=== PATIENT | female | born 1950 | race Caucasian/White ===

== ENCOUNTER 2016-09-03 08:55 | Outpatient (CLI) | payer OTHER ==
--- NOTE | 2016-09-03 15:50 | CT Report ---
CT OF THE ABDOMEN AND PELVIS WITHOUT CONTRAST: 09/03/2016 CLINICAL INDICATION: Pain. TECHNIQUE: Axial CT images of the abdomen and pelvis were obtained without oral or intravenous contra st. COMPARISON: 03/25/2016. FINDINGS: Limited evaluation of the lung bases demonstrates mild emphysema. ABDOMEN: Allowing for the lack of intravenous contrast enhancement, the liver, spleen, pancreas and a drenal glands are unremarkable. The kidneys demonstrate no evidence of nephrolithiasis or hydronephro sis. No bowel dilatation, free gas, or free fluid is present. No abdominal adenopathy is seen. PELVIS: The pelvic organs appear unremarkable. No pelvic adenopathy or free fluid is present. The osseous structures demonstrate degenerative changes. IMPRESSION: NO EVIDENCE OF NEPHROLITHIASIS OR HYDRONEPHROSIS. NO EVIDENT ETIOLOGY FOR PATIENT'S PAIN . In accordance with CT protocol optimization, one or more of the following dose reduction techniques w ere utilized for this exam: automated exposure control, adjustment of mA and/or KV based on patient size, or use of iterative reconstructive technique. JOB #: [id number] EXT JOB #:[id number]
== END 2016-09-03 08:56 | disposition home or self-care (01) ==
LOC: DI 08:55
PROVIDERS: ATTEND Surgery
DX: R10.9 Unspecified abdominal pain (principal)
CPT/HCPCS: 74176

== ENCOUNTER 2016-11-08 07:55 | Outpatient (CLI) | payer OTHER ==
--- NOTE | 2016-11-08 22:55 | Ultrasound Report ---
EXAM: RETROPERITONEAL ULTRASOUND EXAM DATE: 11/08/2016 08:08 AM. CLINICAL HISTORY: ABDOMINAL PAIN, CHRONIC. COMPARISON: 09/03/2016. TECHNIQUE: Real-time scanning was performed with static images obtained. FINDINGS: The proximal aorta measures 1.8 cm in AP diameter. The mid aorta measures 1.7 x 1.7 cm in d iameter. Distal aorta measures 1.3 x 1.6 cm. No significant atheromatous plaque is seen. The right common iliac measures 0.9 x 0.9 cm. The left common iliac measures 0.9 x 0.8 cm. IMPRESSION: No evidence of abdominal aortic or iliac aneurysm. [facility] Referring Provider Line: [phone] SITE ID: [id number]
== END 2016-11-08 07:56 | disposition home or self-care (01) ==
LOC: DI 07:55
PROVIDERS: ATTEND Physician Assistant Medical
DX: R10.9 Unspecified abdominal pain (principal)
CPT/HCPCS: 76770

== ENCOUNTER 2016-11-30 09:49 | Emergency (ER) | payer OTHER ==
--- NOTE | 2016-11-30 10:22 | ED Physician Documentation ---
History of Present Illness - Stated complaint Stated Complaint: BLOOD IN STOOL - Chief complaint Chief Complaint: Abd Pain - Additonal information Additional information: hx from pt 66 female pshc TAHBS kendra ventral hernia has been being worked up for abd pain over last few mibths - has had CT scan ( no acute process) and sono (no acute prcoess) and is now seeing GI to be scheduled for scopes was constipated, took miralax for three days, now having BM but with BRBPR on and in stool though stool itself is not black or maroon no blood thinners last colonoscopy was normal per pt, possible fhx colon cancer Review of Systems Constitutional: denies: Fever, Chills Cardiac: denies: Chest pain / pressure Respiratory: denies: Dyspnea GI: reports: Abdominal Pain (X months), Bloody / black stool (X today) Neurologic: denies: Generalized weakness, Focal weakness Endocrine: denies: Easy bruising / bleeding Immunocompromised: denies: Immunocompromised PD PAST MEDICAL HISTORY - Past Medical History Cardiovascular: Other Respiratory: None Endocrine/Autoimmune: None GI: Other : Kidney stones HEENT: Chronic hearing loss Psych: Panic attacks Musculoskeletal: None Derm: None - Past Surgical History 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 Cardiovascular: Pacemaker - Present Medications Home Medications: Ambulatory Orders Medication Instructions Recorded Confirmed Atenolol 50 mg PO DAILY 10/25/15 11/09/15 Citalopram [CeleXA] 20 mg PO BID 10/25/15 11/09/15 Pantoprazole [Protonix] 40 mg PO DAILY 10/25/15 11/09/15 Simvastatin 40 mg PO DAILY 10/25/15 11/09/15 Sumatriptan [Imitrex] 25 mg PO 10/25/15 Topiramate [Topamax] 15 mg PO BID 10/25/15 11/09/15 - Allergies Allergies/Adverse Reactions: Allergies Allergy/AdvReac Type Severity Reaction Status Date / Time No Known Drug Allergies Allergy Verified 10/25/15 13:32 PD ED PE NORMAL - Vitals Vital signs reviewed: Yes - Neck Neck: Supple, no meningeal sign - Cardiac Cardiac: RRR - Respiratory Respiratory: No respiratory distress - Abdomen Abdomen: Soft, Other (mod TTP across lower abd s rebound or gaurding) - Derm Derm: Normal color - Extremities Extremities: No deformity - Neuro Neuro: Alert and oriented X 3 - Psych Psych: Normal mood Results - Vitals Vitals: Vital Signs - 24 hr 11/30/16 09:53 Temperature 36.9 C Heart Rate 58 L Respiratory 18 Rate Blood Pressure 142/65 H O2 Saturation 100 Oxygen O2 Source Room air - Labs Labs: Laboratory Tests 11/30/16 11/30/16 11/30/16 10:18 10:18 10:18 WBC 4.8 RBC 4.54 Hgb 14.2 Hct 41.2 MCV 90.8 MCH 31.3 H MCHC 34.5 RDW 13.2 Plt Count 163 MPV 6.9 L Neut # 2.4 Lymph # 1.8 [place] # 0.3 Eos # 0.3 Baso # 0.0 Absolute Nucleated RBC 0.00 Nucleated RBCs 0.0 PT 12.0 INR 1.1 APTT 25.2 Sodium 140 Potassium 4.0 Chloride 108 Carbon Dioxide 23 Anion Gap 9.0 BUN 14 Creatinine 1.0 Estimated GFR (MDRD) 56 L Glucose 138 H Calcium 9.4 Total Bilirubin 0.6 AST 41 ALT 53 Alkaline Phosphatase 55 Total Protein 7.8 Albumin 4.3 Globulin 3.5 Albumin/Globulin Ratio 1.2 Lipase 34 PD MEDICAL DECISION MAKING - ED course ED course: nl H/H hemodynamically stable already had Ct sono and scheduled for scopes will reassure and dc for today with bleeding precautions and close follow up Departure - Departure Disposition: 01 Home, Self Care Clinical Impression: GI bleed Qualifiers: GI bleed type/associated pathology: unspecified gastrointestinal hemorrhage type Qualified Code(s): K92.2 - Gastrointestinal hemorrhage, unspecified Condition: Good Instructions: ED Hematochezia Stable Follow-Up: Rosa Isela Nieves PA-C [Primary Care Provider] - Comments: There was bloody mucous on the rectal exam but no hemorrhoids or tumors or fissures were seen. Your blood count is fine - at this time you have not lost too much blood - but you should get a repeat blood count again tomorrow - your PMD can order this to be drawn at the lab and call you with the results. Please get the endoscopy and colonoscopies as planned And return to the ER if worse in any way (heavier bleeding, feeling weak or faint, chest pain or shortness of breath, worsening abdominal pain etc) Also please have your PMD recheck your blood pressure
[2016-11-30 10:24] LABS: BASOPHILS % (AUTO) 0.8 %; EOSINOPHILS # (AUTO) 0.3 10^3/uL (0.0-0.7); EOSINOPHILS % (AUTO) 5.9 %; HCT - HEMATOCRIT 41.2 % (37.0-47.0); HGB - HEMOGLOBIN 14.2 g/dL (12.0-16.0); LYMPHOCYTES # (AUTO) 1.8 10^3/uL (1.5-3.5); LYMPHOCYTES % (AUTO) 37.5 %; MEAN CORPUSCULAR HEMOGLOBIN 31.3 pg (27.0-31.0); MEAN CORPUSCULAR HGB CONC 34.5 g/dL (32.0-36.0); MEAN CORPUSCULAR VOLUME 90.8 fL (81.0-99.0); MEAN PLATELET VOLUME 6.9 fL (7.9-10.8); MONOCYTES # (AUTO) 0.3 10^3/uL (0.0-1.0); MONOCYTES % (AUTO) 6.3 %; NEUTROPHILS # (AUTO) 2.4 10^3/uL (1.5-6.6); NEUTROPHILS % (AUTO) 49.5 %; RED BLOOD COUNT 4.54 10^6/uL (4.20-5.40); RED CELL DISTRIBUTION WIDTH 13.2 % (12.0-15.0); UNCORRECTED WHITE BLOOD COUNT 4.8 x10^3/uL; WHITE BLOOD COUNT 4.8 x10^3/uL (4.8-10.8)
[2016-11-30] MEDS ORDERED: SODIUM CHLORIDE FLUSH 0.9% 10 ML SYRINGE IVP ONE (10:25)
[2016-11-30 10:31] LABS: INR 1.1 (0.8-1.2)
[2016-11-30 10:36] LABS: ALBUMIN/GLOBULIN RATIO 1.2 (1.0-2.2); BILIRUBIN,TOTAL 0.6 mg/dL (0.2-1.0); CALCIUM 9.4 mg/dL (8.5-10.3); TOTAL PROTEIN 7.8 g/dL (6.7-8.2)
[2016-11-30 10:38] LABS: PARTIAL THROMBOPLASTIN TIME 25.2 secs (24.9-33.3)
[2016-11-30 12:04] VITALS: BP 139/76
== END 2016-11-30 12:17 | disposition home or self-care (01) ==
LOC: ED 09:49
DX: K92.2 Gastrointestinal hemorrhage, unspecified (principal); Z95.0 Presence of cardiac pacemaker
CPT/HCPCS: 36415; 80053; 83690; 85025; 85610; 85730; 99283; 99284

== ENCOUNTER 2016-12-09 10:27 | Outpatient (CLI) | payer OTHER ==
--- NOTE | 2016-12-10 07:44 | XRAY Report ---
LUMBAR SPINE, FOUR VIEW STUDY: 12/09/2016 HISTORY: Back pain, radiculopathy. FINDINGS: There are five nonrib-bearing vertebrae. There are diminutive ribs affiliated with the lowest thoracic vertebral bearing body. Mild scoliosis is noted with the apex convex to the right centered at L1-2 and to the left centered at L3-4. Mild multilevel degenerative changes exist throughout the thoracic spine, maximal at L4-5 and L5-S1. There is no spondylolysis or spondylolisthesis. The SI joint spaces are preserved. The visualized sacral ala are intact. Scant atherosclerotic calcifications are incidental in the aorta. Surgical clips in the right upper quadrant likely correspond to a prior cholecystectomy. IMPRESSION: MULTILEVEL DEGENERATIVE DISK AND FACET CHANGES. CONSIDER MRI IF THERE ARE PROGRESSIVE RADICULAR SYMPTOMS. JOB #: [id number] EXT JOB #: [id number] MARTIN
== END 2016-12-09 10:28 | disposition home or self-care (01) ==
LOC: DI.S 10:27
PROVIDERS: ATTEND Physician Assistant Medical
DX: M51.36 Other intervertebral disc degeneration, lumbar region (principal); M47.896 Other spondylosis, lumbar region
CPT/HCPCS: 72110

== ENCOUNTER 2017-01-26 14:49 | Outpatient (CLI) | payer OTHER ==
--- NOTE | 2017-01-27 09:26 | CT Report ---
CT LUMBAR SPINE WITHOUT CONTRAST: 01/26/2017 CLINICAL INDICATION: Pain. TECHNIQUE: Axial CT images of the lumbar spine were obtained without contrast, following which sagit julien and coronal reconstructions were performed. COMPARISON: Plain films 12/09/2016. FINDINGS: The lumbar vertebral bodies demonstrate normal height and alignment. There is no evidence of fracture. The T12-L1 disk is unremarkable. At L1-2, there is mild broad-based disk bulge, without significant spinal or foraminal narrowing. At L2-3, there is moderate broad-based disk bulge, without significant spinal or foraminal narrowing. At L3-4, there is moderate broad-based disk bulge, with facet hypertrophy, producing bilateral forami nal narrowing, but no significant spinal stenosis. At L4-5, there is moderate broad-based disk bulge, with facet hypertrophy, producing bilateral forami nal narrowing, but no significant spinal stenosis. The L5-S1 disk demonstrates minimal disk osteophyte, without significant spinal or foraminal narrowin g. IMPRESSION: DEGENERATIVE CHANGES ABOVE. MULTILEVEL NEURAL FORAMINAL NARROWING, BUT NO SIGNIFICAN T SPINAL STENOSIS. In accordance with CT protocol optimization, one or more of the following dose reduction techniques w ere utilized for this exam: automated exposure control, adjustment of mA and/or KV based on patient size, or use of iterative reconstructive technique. JOB #: [id number] EXT JOB #:[id number]
== END 2017-01-26 14:50 | disposition home or self-care (01) ==
LOC: DI 14:49
PROVIDERS: ATTEND Orthopaedic Surgery
DX: M51.36 Other intervertebral disc degeneration, lumbar region (principal); M47.896 Other spondylosis, lumbar region
CPT/HCPCS: 72131

== ENCOUNTER 2017-06-07 11:10 | Emergency (ER) | payer OTHER ==
[2017-06-07 11:40] LABS: MUDS CUTOFF CONCENTRATIONS CUTOFF CONC BELOW:
[2017-06-07 11:54] LABS: AMPHETAMINE SCREEN,URINE NEGATIVE (NEGATIVE); BENZODIAZEPINES SCREEN, URINE POSITIVE (NEGATIVE); COCAINE SCREEN URINE NEGATIVE (NEGATIVE); METHADONE SCREEN, URINE NEGATIVE (NEGATIVE); METHAMPHETAMINES SCREEN, URINE NEGATIVE (NEGATIVE); OPIATE SCREEN, URINE NEGATIVE (NEGATIVE); OXYCODONE SCREEN, URINE NEGATIVE (NEGATIVE); PROPOXYPHENE SCREEN, URINE NEGATIVE (NEGATIVE); TRICYCLIC ANTIDEPRESSANT,URINE NEGATIVE (NEGATIVE)
[2017-06-07 11:55] LABS: BILIRUBIN,URINE NEGATIVE (NEGATIVE); GLUCOSE, URINE (UA) NEGATIVE (NEGATIVE); KETONES,URINE (UA) NEGATIVE (NEGATIVE); LEUKOCYTE ESTERASE, URINE SMALL (NEGATIVE); NITRITE,URINE NEGATIVE (NEGATIVE); OCCULT BLOOD,URINE NEGATIVE (NEGATIVE); PROTEIN,URINE NEGATIVE (NEGATIVE); UROBILINOGEN,URINE 0.2 (NORMAL) E.U./dL (NORMAL)
[2017-06-07 11:57] LABS: CLARITY,URINE CLEAR (CLEAR)
[2017-06-07 11:58] LABS: BACTERIA,URINE Few /HPF (None Seen); RBC,URINE 0-5 /HPF (0-5); SQUAMOUS EPITHELIAL CELL,UR FEW Squamous (<= Few)
[2017-06-07 11:58] LABS: ACETAMINOPHEN < 10 ug/mL (10-30); ALBUMIN 4.3 g/dL (3.2-5.5); ALBUMIN/GLOBULIN RATIO 1.3 (1.0-2.2); ALKALINE PHOSPHATASE 55 IU/L (42-121); ALT ALANINE AMINOTRANSFERASE 50 IU/L (10-60); AST ASPARTATE AMINOTRANSFERASE 36 IU/L (10-42); BILIRUBIN,TOTAL 0.5 mg/dL (0.2-1.0); BUN - BLOOD UREA NITROGEN 20 mg/dL (6-20); CALCIUM 9.7 mg/dL (8.5-10.3); CARBON DIOXIDE - CO2 26 mmol/L (21-32); CHLORIDE 102 mmol/L (101-111); CREATININE 1.2 mg/dL (0.4-1.0); GFR - MDRD 45 (>89); GLUCOSE 94 mg/dL (70-100); LIPASE 24 U/L (22-51); SALICYLATE < 6.0 mg/dL; SODIUM 140 mmol/L (135-145); TOTAL PROTEIN 7.6 g/dL (6.7-8.2)
[2017-06-07 12:04] LABS: BASOPHILS % (AUTO) 0.7 %; EOSINOPHILS # (AUTO) 0.2 10^3/uL (0.0-0.7); EOSINOPHILS % (AUTO) 4.6 %; HGB - HEMOGLOBIN 14.8 g/dL (12.0-16.0); LYMPHOCYTES # (AUTO) 1.7 10^3/uL (1.5-3.5); LYMPHOCYTES % (AUTO) 38.6 %; MEAN CORPUSCULAR HEMOGLOBIN 31.3 pg (27.0-31.0); MEAN CORPUSCULAR HGB CONC 34.4 g/dL (32.0-36.0); MEAN CORPUSCULAR VOLUME 91.1 fL (81.0-99.0); MEAN PLATELET VOLUME 7.4 fL (7.9-10.8); MONOCYTES # (AUTO) 0.4 10^3/uL (0.0-1.0); MONOCYTES % (AUTO) 8.4 %; NEUTROPHILS # (AUTO) 2.1 10^3/uL (1.5-6.6); NEUTROPHILS % (AUTO) 47.7 %; PLT - PLATELET COUNT 171 10^3/uL (130-450); RED BLOOD COUNT 4.73 10^6/uL (4.20-5.40); RED CELL DISTRIBUTION WIDTH 12.9 % (12.0-15.0); WHITE BLOOD COUNT 4.4 x10^3/uL (4.8-10.8)
--- NOTE | 2017-06-07 12:50 | ED Physician Documentation ---
PD HPI MHE - Stated complaint Stated Complaint: MHE - Chief complaint Chief Complaint: MHE - History obtained from History obtained from: Patient, Family - History of Present Illness Primary symptom: Suicidal ideation, Depression Timing - onset: How many weeks ago (several) Pain level max: 0 Pain level now: 0 Contributing factors: Family Similar symptoms before: Diagnosis (depression) Recently seen: Not recently seen - Additional information Additional information: Patient is a 66-year-old female who presents to the emergency department with depression today. She states that she does not see the point in living and feels like she should be suicidal. Posted on Facebook that she was going to kill herself. Brought in by her . Her doctor wanted her tested for bipolar, but she did not want to do that. She is not currently on anti- antidepressants. Denies any alcohol or drug use. Has never attempted suicide or been hospitalized before. She used to have a counselor, but quit seeing them because she did not get along with that person Review of Systems Ten Systems: 10 systems reviewed and negative Constitutional: denies: Fever, Chills Ears: denies: Ear pain Nose: denies: Rhinorrhea / runny nose, Congestion Throat: denies: Sore throat Cardiac: denies: Chest pain / pressure Respiratory: denies: Cough GI: denies: Abdominal Pain, Nausea, Vomiting, Diarrhea Skin: denies: Rash Musculoskeletal: denies: Neck pain, Back pain Neurologic: denies: Headache PD PAST MEDICAL HISTORY - Past Medical History Cardiovascular: Arrhythmia, Other Respiratory: None Endocrine/Autoimmune: None GI: GERD : Kidney stones, Other HEENT: Chronic hearing loss Psych: Anxiety Musculoskeletal: None Derm: None - Past Surgical History 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 Cardiovascular: Pacemaker HEENT: Tonsil/Adenoidectomy - Present Medications Home Medications: Ambulatory Orders Medication Instructions Recorded Confirmed Atenolol 50 mg PO DAILY 10/25/15 12/24/16 Citalopram [CeleXA] 20 mg PO BID 10/25/15 12/24/16 Pantoprazole [Protonix] 40 mg PO DAILY 10/25/15 12/24/16 SUMAtriptan [Imitrex] 25 mg PO DAILY 10/25/15 12/24/16 Simvastatin 40 mg PO DAILY 10/25/15 12/24/16 Topiramate [Topamax] 15 mg PO BID 10/25/15 12/24/16 - Allergies Allergies/Adverse Reactions: Allergies Allergy/AdvReac Type Severity Reaction Status Date / Time No Known Drug Allergies Allergy Verified 06/07/17 11:22 - Social History Does the pt smoke?: No Smoking Status: Never smoker Does the pt drink ETOH?: No Does the pt have substance abuse?: No - Immunizations Immunizations are current?: Yes - POLST Patient has POLST: No PD ED PE NORMAL - Vitals Vital signs reviewed: Yes - General General: Alert and oriented X 3, No acute distress, Well developed/nourished - HEENT HEENT: PERRL, EOMI, Moist mucous membranes - Neck Neck: Supple, no meningeal sign - Cardiac Cardiac: RRR, Strong equal pulses - Respiratory Respiratory: No respiratory distress, Clear bilaterally - Abdomen Abdomen: Soft, Non tender, Non distended - Back Back: No spinal TTP - Derm Derm: Warm and dry, No rash - Extremities Extremities: No edema, No calf tenderness / cord - Neuro Neuro: Alert and oriented X 3 - Psych Psych: Other (flat affect) Results - Vitals Vitals: Vital Signs - 24 hr 06/07/17 06/07/17 11:13 16:21 Temperature 36.5 C 36 C L Heart Rate 62 55 L Respiratory 20 14 Rate Blood Pressure 156/77 H 136/74 H O2 Saturation 95 99 Oxygen O2 Source Room air - Labs Labs: Laboratory Tests 06/07/17 06/07/17 06/07/17 11:30 11:30 11:35 WBC RBC Hgb Hct MCV MCH MCHC RDW Plt Count MPV Neut # Lymph # [place] # Eos # Baso # Absolute Nucleated RBC Nucleated RBC % Sodium 140 Potassium 4.0 Chloride 102 Carbon Dioxide 26 Anion Gap 12.0 BUN 20 Creatinine 1.2 H Estimated GFR (MDRD) 45 L Glucose 94 Calcium 9.7 Total Bilirubin 0.5 AST 36 ALT 50 Alkaline Phosphatase 55 Total Protein 7.6 Albumin 4.3 Globulin 3.3 Albumin/Globulin Ratio 1.3 Lipase 24 Urine Color YELLOW Urine Clarity CLEAR Urine pH 6.0 Ur Specific [place] 1.025 Urine Protein NEGATIVE Urine Glucose (UA) NEGATIVE Urine Ketones NEGATIVE Urine Occult Blood NEGATIVE Urine Nitrite NEGATIVE Urine Bilirubin NEGATIVE Urine Urobilinogen 0.2 (NORMAL) Ur Leukocyte Esterase SMALL H Urine RBC 0-5 Urine WBC 4-5 Ur Squamous Epith Cells FEW Squamous Urine Bacteria Few Ur Microscopic Review INDICATED Urine Culture Comments INDICATED Salicylates < 6.0 Urine Opiates Screen NEGATIVE Ur Oxycodone Screen NEGATIVE Urine Methadone Screen NEGATIVE Ur Propoxyphene Screen NEGATIVE Acetaminophen < 10 L Ur Barbiturates Screen NEGATIVE Ur Tricyclics Screen NEGATIVE Ur Phencyclidine Scrn NEGATIVE Ur Amphetamine Screen NEGATIVE U Methamphetamines Scrn NEGATIVE U Benzodiazepines Scrn POSITIVE H Urine Cocaine Screen NEGATIVE U Cannabinoids Screen NEGATIVE Ethyl Alcohol < 5.0 06/07/17 11:35 WBC 4.4 L RBC 4.73 Hgb 14.8 Hct 43.1 MCV 91.1 MCH 31.3 H MCHC 34.4 RDW 12.9 Plt Count 171 MPV 7.4 L Neut # 2.1 Lymph # 1.7 [place] # 0.4 Eos # 0.2 Baso # 0.0 Absolute Nucleated RBC 0.00 Nucleated RBC % 0.0 Sodium Potassium Chloride Carbon Dioxide Anion Gap BUN Creatinine Estimated GFR (MDRD) Glucose Calcium Total Bilirubin AST ALT Alkaline Phosphatase Total Protein Albumin Globulin Albumin/Globulin Ratio Lipase Urine Color Urine Clarity Urine pH Ur Specific [place] Urine Protein Urine Glucose (UA) Urine Ketones Urine Occult Blood Urine Nitrite Urine Bilirubin Urine Urobilinogen Ur Leukocyte Esterase Urine RBC Urine WBC Ur Squamous Epith Cells Urine Bacteria Ur Microscopic Review Urine Culture Comments Salicylates Urine Opiates Screen Ur Oxycodone Screen Urine Methadone Screen Ur Propoxyphene Screen Acetaminophen Ur Barbiturates Screen Ur Tricyclics Screen Ur Phencyclidine Scrn Ur Amphetamine Screen U Methamphetamines Scrn U Benzodiazepines Scrn Urine Cocaine Screen U Cannabinoids Screen Ethyl Alcohol PD MEDICAL DECISION MAKING - ED course Complexity details: reviewed results, re-evaluated patient, considered differential, d/w patient, d/w family, d/w strategy planning consultant ED course: Patient is a 66-year-old female who presents to the emergency department with vague suicidal ideation and ongoing depression. She is medically clear for psychiatric care. Social work was consulted and the patient is able to contract for safety and will follow up as an outpatient with a counselor. Patient and family are both comfortable with this plan. They will return sooner if she worsens. Resources given. Patient and family counseled regarding signs and symptoms for which I believe and urgent re-evaluation would be necessary. Patient with good understanding of and agreement to plan and is comfortable going home at this time This document was made in part using voice recognition software. While efforts are made to proofread this document, sound alike and grammatical errors may occur. Departure - Departure Disposition: 01 Home, Self Care Clinical Impression: Depression Qualifiers: Depression Type: unspecified Qualified Code(s): F32.9 - Major depressive disorder, single episode, unspecified Condition: Good Instructions: ED Depression Follow-Up: Rosa Isela Nieves PA-C [Primary Care Provider] - Within 3 Days Comments: Follow-up with a therapist and psychiatrist as instructed by social work today. You should also discuss this with Rosa Isela Nieves. Return if you worsen. Crisis Line and is available to talk to someone [email or web address] is also available to chat with someone online if you prefer. There are also many resources on this website and apps for your phone to help with your mental health Discharge Date/Time: 06/07/17 16:31
[2017-06-07 16:22] VITALS: BP 136/74
== END 2017-06-07 16:31 | disposition home or self-care (01) ==
LOC: ED 11:10
DX: F32.9 Major depressive disorder, single episode, unspecified (principal); R45.851 Suicidal ideations; I49.9 Cardiac arrhythmia, unspecified; K21.9 Gastro-esophageal reflux disease without esophagitis; Z87.442 Personal history of urinary calculi; Z95.0 Presence of cardiac pacemaker
CPT/HCPCS: 36415; 80053; 80306; 80307; 80320; 80329; 81001; 81003; 83690; 85025; 87077; 87086; 99283

== ENCOUNTER 2017-08-07 13:40 | Outpatient (CLI) | payer OTHER ==
[2017-08-07] MEDS ORDERED: IOPAMIDOL-300 50 ML VIAL ONE (14:16)
[2017-08-07 15:00] LABS: CREATININE 1.1 mg/dL (0.4-1.0)
[2017-08-07] MEDS ORDERED: IOPAMIDOL-300 100 ML VIAL ONE (15:26)
[2017-08-07] MEDS ORDERED: IOPAMIDOL-300 50 ML VIAL PO ONE (15:36)
[2017-08-07] MEDS ORDERED: IOPAMIDOL-300 100 ML VIAL IVP ONE (15:44)
--- NOTE | 2017-08-07 16:07 | CT Report ---
CT OF ABDOMEN AND PELVIS WITH CONTRAST: 08/07/2017 CLINICAL INDICATION: Midline abdominal pain, previous hernia repair. COMPARISON: 09/03/2016. TECHNIQUE: Axial CT images of the abdomen and pelvis were obtained with 100 mL Isovue 300 intravenously as well as oral contrast. FINDINGS: Limited evaluation of the lung bases is unremarkable. ABDOMEN: The liver again demonstrates fatty infiltration. Postoperative changes of cholecystectomy are stable. The spleen, pancreas, kidneys and adrenal glands are unremarkable. No bowel dilatation, free gas, or free fluid is present. No abdominal adenopathy is seen. PELVIS: Postoperative changes in the pelvis are stable. No pelvic adenopathy or free fluid is present. A few scattered sigmoid diverticula are seen, without CT evidence of diverticulitis. Osseous structures demonstrate degenerative changes. IMPRESSION: STABLE POSTOPERATIVE CHANGES. NO EVIDENT ETIOLOGY FOR PATIENT'S PAIN. NO RECURRENT HERNIA IS IDENTIFIED. In accordance with CT protocol optimization, one or more of the following dose reduction techniques were utilized for this exam: automated exposure control, adjustment of mA and/or KV based on patient size, or use of iterative reconstructive technique. TD: 08/07/2017 16:06
[2017-09-01] MEDS ORDERED: LIDO GARGLE 30 ML BOTTLE ONE (07:40)
== END 2017-08-07 13:41 | disposition home or self-care (01) ==
LOC: LAB 13:40
PROVIDERS: ATTEND Surgery
DX: R10.9 Unspecified abdominal pain (principal)
CPT/HCPCS: 36415; 74177; 82565; Q9967

== ENCOUNTER 2017-08-10 14:34 | Outpatient (CLI) | payer OTHER ==
--- NOTE | 2017-08-10 16:24 | DEXA Report ---
DEXA SCAN: 08/10/2017 CLINICAL INDICATION: Postmenopausal. TECHNIQUE: Dual energy x-ray absorptiometry (DXA) was performed on a [employer] system. Regions measured are the AP spine, femoral neck, and, if needed, forearm. COMPARISON: None. In accordance with the International Society for Clinical Densitometry (ISCD) guidelines, data from previous exams may be reanalyzed using current recommendations and techniques. This is done to allow a more accurate basis for comparison with the current study. FINDINGS Data for the lumbar spine is as follows: REGION BMD (g/cm/cm) T-SCORE Z-SCORE L1 1.221 0.8 1.6 L2 1.332 1.1 1.9 L3 1.704 4.2 5.0 L4 1.540 2.8 3.7 L1-L4 1.462 2.3 3.2 L2-L4 1.531 2.8 3.6 NOTE: All evaluable vertebrae are used for classification. Data for the hip is as follows: REGION BMD (g/cm/cm) T-SCORE Z-SCORE Neck 1.004 -0.2 0.7 TOTAL 1.062 0.4 1.1 NOTE: The femoral neck or total proximal femur, whichever is lowest, is used for classification. IMPRESSION WHO CLASSIFICATION BASED ON THE INTERNATIONAL REFERENCE STANDARD IS NORMAL. FRACTURE RISK IS NOT INCREASED. RECOMMENDATION: Patients with diagnosis of osteoporosis or osteopenia should have regular bone mineral density assessment. For those eligible for Medicare, routine testing is allowed once every 2 years. Testing frequency can be increased for patients who have rapidly progressing disease or for those who are receiving medical therapy to restore bone mass. COMMENT World Health Organization (WHO) definitions for osteoporosis and osteopenia: NORMAL BMD: T-score at 1.0 or higher, fracture risk is low. OSTEOPENIA BMD: T-score between 1.0 and -2.5, fracture risk is increased. OSTEOPOROSIS BMD: T-score at 2.5 or lower, fracture risk high. National Osteoporosis Foundation recommends: 1. Obtain adequate dietary calcium (at least 1200 mg per day) and vitamin D (400 -800 international units per day). 2. Participate, as appropriate, in regular weightbearing and muscle- strengthening exercise. 3. Avoid tobacco use and reduce alcohol and caffeine intake. 4. For more detailed information see the website at www.NOF.org. TD: 08/10/2017 16:01 MTDBrittanie
== END 2017-08-10 14:35 | disposition home or self-care (01) ==
LOC: DI 14:34
PROVIDERS: ATTEND Physician Assistant Medical
DX: Z78.0 Asymptomatic menopausal state (principal)
CPT/HCPCS: 77080

== ENCOUNTER 2017-09-01 11:47 | Day surgery (SDC) | payer MEDICARE ==
[2017-09-01] MEDS ORDERED: LACTATED RINGERS 1,000 ML IV ONE (12:15)
[2017-09-01] MEDS ORDERED: MIDAZOLAM 2 MG/2 ML VIAL IVP ONE (12:47)
[2017-09-01] MEDS ORDERED: fentaNYL 100 MCG/2 ML VIAL IVP ONE (12:47)
[2017-09-01] MEDS ORDERED: LIDO GARGLE 30 ML BOTTLE TOP ONE (12:50)
[2017-09-01 13:31] VITALS: BP 113/63
== END 2017-09-01 11:48 | disposition home or self-care (01) ==
LOC: SDS 11:47
PROVIDERS: ATTEND Surgery
PROC: 0DB78ZX Excision of Stomach, Pylorus, Via Natural or Artificial Opening Endoscopic, Diagnostic (ICD-10-PCS; 2017-09-01)
PROC: 0DB58ZX Excision of Esophagus, Via Natural or Artificial Opening Endoscopic, Diagnostic (ICD-10-PCS; 2017-09-01)
PROC: 0DB98ZX Excision of Duodenum, Via Natural or Artificial Opening Endoscopic, Diagnostic (ICD-10-PCS; principal; 2017-09-01 13:15)
DX: R10.84 Generalized abdominal pain (principal); K29.80 Duodenitis without bleeding; K29.50 Unspecified chronic gastritis without bleeding; Z87.891 Personal history of nicotine dependence
CPT/HCPCS: 43239; A9270; J7120; 88305

== ENCOUNTER 2017-10-30 07:40 | Day surgery (SDC) | payer MEDICARE ==
[2017-10-30] MEDS ORDERED: LACTATED RINGERS 1,000 ML IV ONE ×2 (08:14→11:30)
[2017-10-30] MEDS ORDERED: ceFAZolin 2 GM/50 ML 2 GM/50 ML BAG IV ONE (08:33)
[2017-10-30] MEDS ORDERED: BUPIVACAINE 0.25% PF 30 ML VIAL ONE (08:47)
[2017-10-30] MEDS ORDERED: BUPIVACAINE 0.25% PF 30 ML VIAL SUBQ ONE ×2 (09:47)
[2017-10-30] MEDS ORDERED: ACETAMINOPHEN 1,000 MG/100 ML 100 ML IV ONE (10:00)
[2017-10-30] MEDS ORDERED: DEXAMETHASONE 4 MG/ML VIAL IVP ONE (10:00)
[2017-10-30] MEDS ORDERED: LIDOCAINE-MPF 2% 5 ML VIAL IM ONE (10:00)
[2017-10-30] MEDS ORDERED: fentaNYL 100 MCG/2 ML VIAL IVP ONE (10:00)
[2017-10-30] MEDS ORDERED: ONDANSETRON 4 MG/2 ML VIAL IVP ONE (10:00)
[2017-10-30] MEDS ORDERED: NEOSTIGMINE 1 MG/1 ML 10 ML MDV IVP ONE (10:00)
[2017-10-30] MEDS ORDERED: GLYCOPYRROLATE 1 MG/5 ML VIAL IVP ONE (10:00)
[2017-10-30] MEDS ORDERED: PROPOFOL 200 MG/20 ML VIAL IVP ONE (10:00)
[2017-10-30] MEDS ORDERED: MIDAZOLAM 2 MG/2 ML VIAL IVP ONE (10:00)
[2017-10-30] MEDS ORDERED: ROCURONIUM 50 MG/5 ML VIAL IVP ONE (10:00)
[2017-10-30] MEDS: HYDROmorphone 1 MG/ML CARPUJECT ONE ×3 (11:55→12:20)
[2017-10-30] MEDS ORDERED: KETOROLAC 30 MG/ML VIAL ONE (12:16)
[2017-10-30] MEDS ORDERED: HYDROcod/ACETAM 5/325 MG TABLET PO PRN (12:43)
[2017-10-30] MEDS ORDERED: HYDROmorphone 0.5 MG/0.5 ML SYRINGE IVP PRN ×2 (12:45→13:51)
[2017-10-30] MEDS ORDERED: ONDANSETRON 4 MG/2 ML VIAL IVP PRN (12:46)
[2017-10-30 13:20] VITALS: BP 144/59
== END 2017-10-30 18:15 | disposition home or self-care (01) ==
LOC: SDS 07:40 → OBS 11:45 → UNDOADMOB 11:45 → SDS 18:15
PROVIDERS: ATTEND Surgery
PROC: 0WUF4JZ Supplement Abdominal Wall with Synthetic Substitute, Percutaneous Endoscopic Approach (ICD-10-PCS; principal; 2017-10-30 08:45)
DX: K43.0 Incisional hernia with obstruction, without gangrene (principal); I10 Essential (primary) hypertension; K21.9 Gastro-esophageal reflux disease without esophagitis; Z87.891 Personal history of nicotine dependence; E78.5 Hyperlipidemia, unspecified; Z95.0 Presence of cardiac pacemaker
CPT/HCPCS: 49657; J0131; J0690; J1170; J7120

== ENCOUNTER 2018-01-05 08:01 | Outpatient (CLI) | payer MEDICARE ==
--- NOTE | 2018-01-19 09:52 | Mammography Report ---
Reason: SCREENING Procedure Date: 01/05/2018 Accession Number: [id number] / [id number] Procedure: YOVANY - Screening Mammo Dig Bilat CPT Code: FULL RESULT: EXAM: Screening Mammo Dig Bilat DATE: 01/05/2018 8:34 AM CLINICAL HISTORY: 67-year-old female with history of late childbearing. TECHNIQUE: Bilateral CC and MLO views were obtained. COMPARISON: 03/20/2014, 03/04/2012. FINDINGS: The breasts demonstrate diffuse fatty replacement bilaterally. A medical implant is seen in the chest wall on the left. Seen on the left MLO view 9.5 cm deep to the nipple is a new asymmetry with no clear correlate on cc view. This requires additional spot magnification views and possibly ultrasound. No suspicious masses, clustered microcalcifications, or regions of architectural distortion are identified. IMPRESSION: Incomplete examination RECOMMENDATION: Additional evaluation as above. BIRADS CATEGORY 0: Incomplete examination STANDARD QUALIFYING STATEMENTS: 1. This examination was not reviewed with the aid of Computer-Aided Detection (CAD). 2. A negative or benign imaging report should not delay biopsy if clinically suspicious findings are present. Consider surgical consultation if warrented. More than 5% of cancers are not identified by imaging. 3. Dense breasts may obscure an underlying neoplasm.
== END 2018-01-05 08:02 | disposition home or self-care (01) ==
LOC: DI 08:01
PROVIDERS: ATTEND Physician Assistant Medical
DX: Z12.31 Encounter for screening mammogram for malignant neoplasm of breast (principal); R92.8 Other abnormal and inconclusive findings on diagnostic imaging of breast
CPT/HCPCS: 77067

== ENCOUNTER 2018-01-12 10:56 | Outpatient (CLI) | payer MEDICARE | END 2018-01-12 10:57 | disposition home or self-care (01) | LOC: LAB.F 10:56 | PROVIDERS: ATTEND Physician Assistant Medical | DX: R41.3 Other amnesia (principal); G43.909 Migraine, unspecified, not intractable, without status migrainosus | CPT/HCPCS: 36415; 82565 ==

== ENCOUNTER 2018-01-18 12:36 | Outpatient (CLI) | payer MEDICARE ==
[2018-01-18] MEDS ORDERED: IOPAMIDOL-300 100 ML VIAL ONE (12:41)
[2018-01-18] MEDS ORDERED: IOPAMIDOL-300 100 ML VIAL IVP ONE (14:06)
--- NOTE | 2018-01-18 15:38 | CT Report ---
Reason: MEMORY IMPAIRMENT,MIGRAINE Procedure Date: 01/18/2018 Accession Number: [id number] / [id number] Procedure: CT - Head W/WO CPT Code: FULL RESULT: EXAM: CT HEAD WITHOUT AND WITH CONTRAST EXAM DATE: 01/18/2018 01:04 PM. CLINICAL HISTORY: 67-year-old woman with memory and migraine headache. COMPARISON: None. TECHNIQUE: Multiaxial CT images were obtained from the foramen magnum to the vertex prior to and following intravenous administration of contrast. Reformats: Sagittal and coronal. IV contrast: 80 cc Isovue 300. In accordance with CT protocol optimization, one or more of the following dose reduction techniques were utilized for this exam: automated exposure control, adjustment of mA and/or KV based on patient size, or use of iterative reconstructive technique. FINDINGS: Parenchyma: No evidence of acute infarct, hemorrhage, or mass lesion. The parenchyma demonstrates normal attenuation characteristics. No abnormal enhancement. Ventricles and Extra-axial Spaces: Ventricles are symmetric and normal in size. No extra-axial hemorrhage or fluid collection. No abnormal enhancement or mass lesion. Orbits: Unremarkable. Sinuses: Paranasal sinuses and mastoid air cells are clear. Extracranial Soft Tissues and Bones: Multiple soft tissue density nodules are present in the scalp subcutaneous fat bilaterally. Larger lesions measure approximately 1-15 cm in diameter and extend to the skin surface where there are small indentations in the overlying epidermis. No fractures. IMPRESSION: 1. No acute intracranial abnormality. Specifically, no evidence of infarct, hemorrhage, or mass lesion. No abnormal enhancement. 2. Multiple soft tissue density nodules are present in the scalp soft tissues bilaterally. Appearance is nonspecific, but most commonly sebaceous cyst or epidermal inclusion cysts. However, neoplastic processes could have a similar appearance. Direct inspection is recommended. [facility]
== END 2018-01-18 12:37 | disposition home or self-care (01) ==
LOC: DI 12:36
PROVIDERS: ATTEND Physician Assistant Medical
DX: R41.3 Other amnesia (principal); G43.909 Migraine, unspecified, not intractable, without status migrainosus; R22.0 Localized swelling, mass and lump, head
CPT/HCPCS: 70470; Q9967

== ENCOUNTER 2018-01-24 16:15 | Emergency (ER) | payer MEDICARE ==
[2018-01-24] MEDS ORDERED: HYDROmorphone 1 MG/ML CARPUJECT IM STA (16:36)
--- NOTE | 2018-01-24 16:39 | ED Physician Documentation ---
PD HPI BACK INJURY - Stated complaint Stated Complaint: BACK PX - History obtained from History obtained from: Patient - History of Present Illness Location: Right (She has chronic low back pain. CT Lspine from last year reviewed with multilevel foraminal stenosis but no spinal stenosis. Over the last few days has had an increase of right-sided low back pain with pain radiating into the right thigh and numbness in the right leg. No bowel or bladder incontinence and no saddle no fevers. She has had constipation which is an increase over her baseline constipation. And she has some mobility problems because of pain but no weakness.) Review of Systems Constitutional: denies: Fever, Chills, Myalgias GI: reports: Constipation. 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 Cardiovascular: Pacemaker HEENT: Tonsil/Adenoidectomy - Present Medications Home Medications: Ambulatory Orders Medication Instructions Recorded Confirmed Pantoprazole [Protonix] 40 mg PO DAILY 10/25/15 10/30/17 SUMAtriptan [Imitrex] 50 mg PO DAILY PRN 10/25/15 10/30/17 Simvastatin 40 mg PO DAILY 10/25/15 10/29/17 Ascorbic Acid [Vitamin C] 500 mg PO DAILY 08/28/17 10/30/17 Aspirin [Adult Low Dose Aspirin EC] 81 mg PO DAILY 08/28/17 10/30/17 Aspirin/Acetaminophen/Caffeine 1 - 2 each PO DAILY PRN 08/28/17 10/30/17 [Excedrin Migraine Caplet] Ciclopirox/Ure/Camph/Menth/Euc 1 applic TOP DAILY PRN 08/28/17 10/30/17 [Ciclopirox 8% Treatment Kit] Clobetasol 0.05% Oint [Temovate 1 applic TOP DAILY PRN 08/28/17 10/30/17 0.05% Oint] Docusate Sodium [Colace Clear] 100 mg PO DAILY 08/28/17 10/30/17 Ibuprofen 600 mg PO TID PRN 08/28/17 10/30/17 Mv-Mn/Folic Acid/Calcium/Vit K 1 each PO DAILY 08/28/17 10/30/17 [Women's 50 Plus Daily Formula] Peppermint Oil [Pepogest] 1 ml TOP DAILY PRN 08/28/17 10/30/17 Nadolol 60 mg PO DAILY 10/29/17 10/30/17 Cyclobenzaprine [Flexeril] 10 mg PO TID PRN #20 tablet 01/24/18 Hydrocodone/Acetaminophen 1 - 2 each PO Q6H PRN #14 tablet 01/24/18 [Hydrocodon-Acetaminophen 5-325] Lactulose [Generlac] 10 gm PO BID PRN #150 ml 01/24/18 predniSONE [Deltasone] 20 mg PO [id number] #21 tab 01/24/18 - Allergies Allergies/Adverse Reactions: Allergies Allergy/AdvReac Type Severity Reaction Status Date / Time No Known Drug Allergies Allergy Verified 01/24/18 16:22 - Social History Does the pt smoke?: No Smoking Status: Never smoker Does the pt drink ETOH?: No Does the pt have substance abuse?: No - Immunizations Immunizations are current?: Yes - POLST Patient has POLST: No PD ED PE NORMAL - Vitals Vital signs reviewed: Yes - General General: Alert and oriented X 3, No acute distress (But winces with motion) - Cardiac Cardiac: RRR, No murmur - Respiratory Respiratory: No respiratory distress, Clear bilaterally - Abdomen Abdomen: Normal bowel sounds, Soft, Non tender - Back Back: No spinal TTP, Other (Tender to the right paralumbar musculature. The patient has equal and normal Achilles and patellar reflexes bilaterally. Normal sensation in all areas of the legs. Patient denies saddle anesthesia. Normal strength in flexion-extension at the ankles, knees, and flexion of the hips.) - Neuro Neuro: Alert and oriented X 3, Normal speech Results - Vitals Vitals: Vital Signs - 24 hr 01/24/18 16:20 Temperature 36 C L Heart Rate 115 H Respiratory 18 Rate Blood Pressure 168/91 H O2 Saturation 96 Oxygen O2 Source Room air PD MEDICAL DECISION MAKING - ED course ED course: This is a 67-year-old woman who does not have diabetes who has an increase in chronic back pain. CT from last year for same complaint reviewed. She was administered 1 mg of Dilaudid here. - Sepsis Event Vital Signs: Vital Signs - 24 hr 01/24/18 16:20 Temperature 36 C L Heart Rate 115 H Respiratory 18 Rate Blood Pressure 168/91 H O2 Saturation 96 Oxygen O2 Source Room air Departure - Departure Disposition: Home, Self Care Clinical Impression: Back pain Qualifiers: Back pain location: low back pain Chronicity: acute Back pain laterality: right Sciatica presence: with sciatica Sciatica laterality: sciatica of right side Qualified Code(s): M54.41 - Lumbago with sciatica, right side Condition: Good Record reviewed to determine appropriate education?: Yes Instructions: ED Low Back Pain Injury Prescriptions: Cyclobenzaprine [Flexeril] 10 mg PO TID PRN #20 tablet PRN Reason: Spasms Hydrocodone/Acetaminophen [Hydrocodon-Acetaminophen 5-325] 1 - 2 each PO Q6H PRN #14 tablet PRN Reason: pain Lactulose [Generlac] 10 gm PO BID PRN #150 ml PRN Reason: Constipation predniSONE [Deltasone] 20 mg PO [id number] #21 tab Comments: Call your doctor to arrange a follow-up appointment, make the next available appointment. In the interim, return anytime if worse or if new symptoms develop. Your blood pressure was elevated today on check into the emergency department. This does not mean that you have hypertension, it is a common phenomenon to come to the emergency department and have elevated blood pressure. I recommend that you see your primary care physician within the week to have it rechecked when you are feeling better. Do not drink or drive while taking narcotic pain medication. Note that many narcotic pain relievers also contain Tylenol/acetaminophen. Please ensure that your total dose of acetaminophen from all sources does not exceed 3 g (3000 mg) per day. You may get constipated while on this medication. Take a stool softener such as Colace twice a day while you are on it. Also add an [id number] laxative such as senna or MiraLAX on any day that you do not have a bowel movement. If you received a narcotic pain medication or sedative while in the emergency department, do not drive for the next 24 hours.
[2018-01-24 17:08] VITALS: BP 161/89
== END 2018-01-24 17:08 | disposition home or self-care (01) ==
LOC: ED 16:15
DX: M54.41 Lumbago with sciatica, right side (principal); G89.29 Other chronic pain; M54.5 Low back pain; R03.0 Elevated blood-pressure reading, without diagnosis of hypertension; K59.00 Constipation, unspecified; Z79.82 Long term (current) use of aspirin
CPT/HCPCS: 96372; 99283; J1170

== ENCOUNTER 2018-02-03 09:37 | Outpatient (CLI) | payer MEDICARE ==
--- NOTE | 2018-02-03 15:22 | Mammography Report ---
Reason: ABN MAMMO - LT SPEC VIEWS Procedure Date: 02/03/2018 Accession Number: [id number] / [id number] Procedure: YOVANY - Diag Special Views Dig LT CPT Code: FULL RESULT: EXAM: Diag Special Views Dig LT DATE: 02/03/2018 10:37 AM CLINICAL HISTORY: 67-year-old female recalled from screening for a left breast asymmetry. TECHNIQUE: Left MLO 2-D and 3-D views as well as a left spot MLO view were obtained. COMPARISON: 01/05/2018. FINDINGS: The breasts demonstrate scattered fibroglandular densities bilaterally. 3 trauma symphysis clearly reveals the finding to be overlap of vessels. No suspicious mass/nodule, clustered microcalcification or architectural distortion is identified. IMPRESSION: Benign findings RECOMMENDATION: Recommend routine annual Screening mammography unless otherwise clinically indicated. BIRADS CATEGORY 2: Benign findings STANDARD QUALIFYING STATEMENTS: 1. This examination was not reviewed with the aid of Computer-Aided Detection (CAD). 2. A negative or benign imaging report should not delay biopsy if clinically suspicious findings are present. Consider surgical consultation if warrented. More than 5% of cancers are not identified by imaging. 3. Dense breasts may obscure an underlying neoplasm. 4. This examination was reviewed with the aid of 3D imaging (tomography).
== END 2018-02-03 09:38 | disposition home or self-care (01) ==
LOC: DI 09:37
PROVIDERS: ATTEND Physician Assistant Medical
DX: R92.8 Other abnormal and inconclusive findings on diagnostic imaging of breast (principal)

== ENCOUNTER 2018-04-12 08:01 | Outpatient (CLI) | payer MEDICARE ==
[2018-04-12] MEDS ORDERED: IOVERSOL 320 50 ML VIAL ONE (08:06)
[2018-04-12] MEDS ORDERED: IOVERSOL 320 100 ML VIAL IVP ONE ×2 (08:07→10:01)
[2018-04-12 09:16] LABS: CREATININE 0.9 mg/dL (0.4-1.0)
[2018-04-12] MEDS ORDERED: IOVERSOL 320 50 ML VIAL PO ONE (10:01)
--- NOTE | 2018-04-12 13:10 | CT Report ---
Reason: LLQ ABDOMINAL PAIN WORSENED BY TOUCH LAYING DOWN Procedure Date: 04/12/2018 Accession Number: [id number] / [id number] Procedure: CT - Abdomen/Pelvis W/ CPT Code: FULL RESULT: EXAM: CT ABDOMEN AND PELVIS EXAM DATE: 04/12/2018 09:44 AM. CLINICAL HISTORY: Left lower quadrant abdominal pain worsened by touch and lying down. COMPARISONS: Abdomen/pelvis with contrast 08/07/2017 3:29 PM. TECHNIQUE: Routine helical CT imaging was performed through the abdomen and pelvis. IV contrast: opti 320 100mL. Enteric contrast: No. Reconstructions: Coronal and sagittal. In accordance with CT protocol optimization, one or more of the following dose reduction techniques were utilized for this exam: automated exposure control, adjustment of mA and/or KV based on patient size, or use of iterative reconstructive technique. FINDINGS: Lung Bases: Stable mild pleural parenchymal scarring changes noted right anterior pleural space. Minor basilar atelectasis. Liver: Normal. No masses. Gallbladder/Bile Ducts: Surgically absent gallbladder. No evidence of biliary ductal dilatation. Spleen: Normal. Pancreas: Normal. Adrenal Glands: Normal. Kidneys: Normal. No masses or hydronephrosis. Peritoneal Cavity/Bowel: Normal. No free fluid, free air or adenopathy. No masses or acute inflammatory process. No significant diverticulosis. No CT evidence of diverticulitis. Appendix not definitely identified. Pelvic Organs: Stable post-surgical changes. Stable appearance to the region of the vaginal cuff. Ovaries not visualized and presumed surgically absent. Vasculature: No aneurysms or other significant abnormality. Bones: No significant abnormality. Other: None. IMPRESSION: Stable exam findings as described. No etiology visualized to explain left lower quadrant pain. RADIA
== END 2018-04-12 08:02 | disposition home or self-care (01) ==
LOC: LAB 08:01
PROVIDERS: ATTEND Surgery
DX: R10.32 Left lower quadrant pain (principal)
CPT/HCPCS: 36415; 74177; 82565; Q9967

== ENCOUNTER 2018-04-12 11:14 | Outpatient (CLI) | payer MEDICARE | END 2018-04-12 11:15 | disposition home or self-care (01) | LOC: SC 11:14 | PROVIDERS: ATTEND Internal Medicine Pulmonary Disease | DX: G47.10 Hypersomnia, unspecified (principal); R51 Headache; R41.89 Other symptoms and signs involving cognitive functions and awareness; R06.83 Snoring | CPT/HCPCS: 36415; 74177; 82565; 99203; G0463; Q9967; 99212 ==

== ENCOUNTER 2018-08-20 16:19 | Outpatient (CLI) | payer MEDICARE ==
--- NOTE | 2018-08-22 01:35 | XRAY Report ---
Reason: PAIN IN LEFT ANKLE AND JOINTS OF LEFT FOOT Procedure Date: 08/20/2018 Accession Number: [id number] / [id number] Procedure: XR - Ankle 3 View LT CPT Code: FULL RESULT: EXAM: LEFT ANKLE RADIOGRAPHY EXAM DATE: 08/20/2018 05:56 PM. CLINICAL HISTORY: PAIN IN LEFT ANKLE AND JOINTS OF LEFT FOOT. COMPARISON: None. TECHNIQUE: 3 views. FINDINGS: Bones: Normal. No fractures or bone lesions. Joints: Normal. No effusion. No subluxations. The ankle mortise is normally aligned. Soft Tissues: Diffuse ankle soft tissue swelling. Medial malleolus bone spur. IMPRESSION: Diffuse ankle soft tissue swelling. No evidence for acute fracture. RADIA
--- NOTE | 2018-08-22 01:37 | XRAY Report ---
Reason: PAIN IN LEFT ANKLE AND JOINTS OF LEFT FOOT Procedure Date: 08/20/2018 Accession Number: [id number] / [id number] Procedure: XR - Foot 3 View LT CPT Code: FULL RESULT: EXAM: LEFT FOOT RADIOGRAPHY EXAM DATE: 08/20/2018 05:56 PM. CLINICAL HISTORY: PAIN IN LEFT ANKLE AND JOINTS OF LEFT FOOT. Left foot pain after ground-level fall 2 days ago. COMPARISON: None. TECHNIQUE: 3 views. FINDINGS: Bones: Normal. No fractures or bone lesions. Joints: Normal. No subluxations. Soft Tissues: Normal. No soft tissue swelling. Tiny posterior calcaneal bone spur. IMPRESSION: No acute findings. RADIA
== END 2018-08-20 16:20 | disposition home or self-care (01) ==
LOC: DI 16:19
PROVIDERS: ATTEND Physician Assistant Medical
DX: M25.572 Pain in left ankle and joints of left foot (principal); R22.42 Localized swelling, mass and lump, left lower limb

== ENCOUNTER 2019-02-07 15:45 | Emergency (ER) | payer MEDICARE ==
--- NOTE | 2019-02-07 16:37 | ED Physician Documentation ---
PD HPI HEAD INJURY - Stated complaint Stated Complaint: HEAD LAC - Chief complaint Chief Complaint: Laceration - History obtained from History obtained from: Patient, Friend - History of Present Illness Mechanism of head injury: Blow (hit her head against a side mirror in the parking lot), Laceration Where head injury occurred: Street Timing - onset: Today (just prior to arrival) Severity Comments: mild Location of injury: Front (forehead) Associated symptoms: No: LOC, AMS, Amnesia, Nausea / vomiting, Neck pain, Paresthesias Symptoms improve with: Nothing Symptoms worsen with: Palpation Contributing factors: No: Anticoagulated, Intoxicated Similar symptoms before: Has not had sx before Recently seen: Not recently seen - Treatment prior to arrival Treatment prior to arrival: none Review of Systems Ten Systems: 10 systems reviewed and negative Constitutional: denies: Fever Eyes: denies: Loss of vision, Decreased vision, Photophobia Respiratory: reports: Reviewed and negative GI: reports: Reviewed and negative Skin: reports: Laceration (s) Neurologic: reports: Head injury. 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 Cardiovascular: Pacemaker HEENT: Tonsil/Adenoidectomy - Present Medications Home Medications: Ambulatory Orders Medication Instructions Recorded Confirmed Pantoprazole [Protonix] 40 mg PO DAILY 10/25/15 10/30/17 SUMAtriptan [Imitrex] 50 mg PO DAILY PRN 10/25/15 10/30/17 Simvastatin 40 mg PO DAILY 10/25/15 10/29/17 Ascorbic Acid [Vitamin C] 500 mg PO DAILY 08/28/17 10/30/17 Aspirin [Adult Low Dose Aspirin EC] 81 mg PO DAILY 08/28/17 10/30/17 Aspirin/Acetaminophen/Caffeine 1 - 2 each PO DAILY PRN 08/28/17 10/30/17 [Excedrin Migraine Caplet] Ciclopirox/Ure/Camph/Menth/Euc 1 applic TOP DAILY PRN 08/28/17 10/30/17 [Ciclopirox 8% Treatment Kit] Clobetasol 0.05% Oint [Temovate 1 applic TOP DAILY PRN 08/28/17 10/30/17 0.05% Oint] Docusate Sodium [Colace Clear] 100 mg PO DAILY 08/28/17 10/30/17 Ibuprofen 600 mg PO TID PRN 08/28/17 10/30/17 Mv-Mn/Folic Acid/Calcium/Vit K 1 each PO DAILY 08/28/17 10/30/17 [Women's 50 Plus Daily Formula] Peppermint Oil [Pepogest] 1 ml TOP DAILY PRN 08/28/17 10/30/17 Nadolol 60 mg PO DAILY 10/29/17 10/30/17 Cyclobenzaprine [Flexeril] 10 mg PO TID PRN #20 tablet 01/24/18 Hydrocodone/Acetaminophen 1 - 2 each PO Q6H PRN #14 tablet 01/24/18 [Hydrocodon-Acetaminophen 5-325] Lactulose [Generlac] 10 gm PO BID PRN #150 ml 01/24/18 predniSONE [Deltasone] 20 mg PO [id number] #21 tab 01/24/18 - Allergies Allergies/Adverse Reactions: Allergies Allergy/AdvReac Type Severity Reaction Status Date / Time No Known Drug Allergies Allergy Verified 02/07/19 15:56 - Social History Does the pt smoke?: No Smoking Status: Never smoker Does the pt drink ETOH?: Yes Does the pt have substance abuse?: No - Immunizations Immunizations are current?: Yes - POLST Patient has POLST: No PD ED PE NORMAL - Vitals Vital signs reviewed: Yes - General General: Alert and oriented X 3, No acute distress, Well developed/nourished - HEENT HEENT: PERRL, EOMI, Moist mucous membranes, Pharynx benign - Neck Neck: Supple, no meningeal sign, No JVD - Cardiac Cardiac: RRR - Respiratory Respiratory: No respiratory distress - Abdomen Abdomen: Non distended - Female Female : Deferred - Rectal Rectal: Deferred - Derm Derm: Normal color, Warm and dry, No rash - Extremities Extremities: No deformity - Neuro Neuro: Alert and oriented X 3 Eye Opening: Spontaneous Motor: Obeys Commands Verbal: Oriented GCS Score: 15 - Psych Psych: Normal mood, Normal affect PD ED PE EXPANDED - Derm Derm: Laceration(s) (6cm laceration to forehead, irregular ) Results - Vitals Vitals: Vital Signs - 24 hr 02/07/19 02/07/19 15:51 17:38 Temperature 37 C Heart Rate 52 L 53 L Respiratory 16 16 Rate Blood Pressure 124/62 140/66 H O2 Saturation 96 100 Oxygen O2 Source Room air Procedures - Laceration (location) Forehead laceration Length in cm: 8 Wound type: Irregular Neurovascular status: Sensory intact, Motor intact, Vascular intact Anesthesia: Lidocaine 1% with epi (5) Wound Preparation: Irrigated copiously NS Skin layer closure: Nylon, Size #-0 - enter number (6-0), Sutures - enter # (12) Other: Patient tolerated well, No complications, Neurovascular intact, Dressing applied, Tetanus UTD Complexity: Intermediate PD MEDICAL DECISION MAKING - ED course Complexity details: re-evaluated patient, considered differential, d/w patient ED course: ddx- head laceration, head injury, ICH 68 y/o F with minor trauma to head by hitting it on a door side mirror. No LOC, not anticoaguolated, GCS15 Has a forehead laceration which was repaired in the ED without complication. Pt given instructions for home care and f/u for suture removal. Return precautions given if redness, swelling, discharge or signs of infection. Departure - Departure Disposition: 01 Home, Self Care Clinical Impression: Forehead laceration Qualifiers: Encounter type: initial encounter Qualified Code(s): S01.81XA - Laceration without foreign body of other part of head, initial encounter Condition: Stable Record reviewed to determine appropriate education?: Yes Instructions: ED Laceration Facial Sutr Tape Follow-Up: Rosa Isela Nieves PA-C [Primary Care Provider] - 02/11/19 (for suture removal) Discharge Date/Time: 02/07/19 17:52
[2019-02-07] MEDS ORDERED: BACITRACIN ZINC OINT 14 GM TOP STA (17:22)
[2019-02-07] MEDS ORDERED: ACETAMINOPHEN 325 MG TABLET PO STA (17:33)
[2019-02-07 17:38] VITALS: BP 140/66
== END 2019-02-07 17:52 | disposition home or self-care (01) ==
LOC: ED 15:45
DX: S01.81XA Laceration without foreign body of other part of head, initial encounter (principal); W22.09XA Striking against other stationary object, initial encounter; Y93.01 Activity, walking, marching and hiking; Y92.007 Garden or yard of unspecified non-institutional (private) residence as the place of occurrence of the external cause; Z79.82 Long term (current) use of aspirin
CPT/HCPCS: 12054; 99282; 99284; A9270

== ENCOUNTER 2019-02-09 07:21 | Emergency (ER) | payer MEDICARE ==
--- NOTE | 2019-02-09 07:57 | ED Physician Documentation ---
History of Present Illness - Stated complaint Stated Complaint: SYNCOPE - Chief complaint Chief Complaint: Neuro - Additonal information Additional information: This is a 68-year-old female with a history of reported symptomatic bradycardia status post pacemaker placement ([employer]), who presents with an episode of syncope. This morning patient use the bathroom and then she got up and the next thing she remembers she was lying on the floor. She thinks she was only out for a couple seconds. She denies any significant pain in her head or neck, other than some soreness in her forehead where she hit her head against the edge of her home several days ago, this was repaired with stitches at that time. She denies any chest pain or shortness of breath. She did have some brief lightheadedness immediately prior to the syncope. Review of Systems Constitutional: denies: Fever Eyes: denies: Loss of vision Cardiac: denies: Chest pain / pressure Respiratory: denies: Dyspnea GI: denies: Abdominal Pain : denies: Dysuria Skin: reports: Laceration (s) (forehead, repaired) Immunocompromised: denies: Immunocompromised PD PAST MEDICAL HISTORY - Past Medical History Cardiovascular: Arrhythmia, Other Respiratory: None, Shortness of breath Endocrine/Autoimmune: None GI: GERD, GI bleed, Cholelithiasis : Kidney stones, Other HEENT: Chronic hearing loss Psych: Depression, Anxiety, Panic attacks Musculoskeletal: None Derm: None - Past Surgical History Past Surgical History: Yes General: 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: Hysterectomy, Oophrectomy Cardiovascular: Pacemaker HEENT: Tonsil/Adenoidectomy - Present Medications Home Medications: Ambulatory Orders Medication Instructions Recorded Confirmed Pantoprazole [Protonix] 40 mg PO DAILY 10/25/15 10/30/17 SUMAtriptan [Imitrex] 50 mg PO DAILY PRN 10/25/15 10/30/17 Simvastatin 40 mg PO DAILY 10/25/15 10/29/17 Ascorbic Acid [Vitamin C] 500 mg PO DAILY 08/28/17 10/30/17 Aspirin [Adult Low Dose Aspirin EC] 81 mg PO DAILY 08/28/17 10/30/17 Aspirin/Acetaminophen/Caffeine 1 - 2 each PO DAILY PRN 08/28/17 10/30/17 [Excedrin Migraine Caplet] Ciclopirox/Ure/Camph/Menth/Euc 1 applic TOP DAILY PRN 08/28/17 10/30/17 [Ciclopirox 8% Treatment Kit] Clobetasol 0.05% Oint [Temovate 1 applic TOP DAILY PRN 08/28/17 10/30/17 0.05% Oint] Docusate Sodium [Colace Clear] 100 mg PO DAILY 08/28/17 10/30/17 Ibuprofen 600 mg PO TID PRN 08/28/17 10/30/17 Mv-Mn/Folic Acid/Calcium/Vit K 1 each PO DAILY 08/28/17 10/30/17 [Women's 50 Plus Daily Formula] Peppermint Oil [Pepogest] 1 ml TOP DAILY PRN 08/28/17 10/30/17 Nadolol 60 mg PO DAILY 10/29/17 10/30/17 Cyclobenzaprine [Flexeril] 10 mg PO TID PRN #20 tablet 01/24/18 Hydrocodone/Acetaminophen 1 - 2 each PO Q6H PRN #14 tablet 01/24/18 [Hydrocodon-Acetaminophen 5-325] Lactulose [Generlac] 10 gm PO BID PRN #150 ml 01/24/18 predniSONE [Deltasone] 20 mg PO [id number] #21 tab 01/24/18 - Allergies Allergies/Adverse Reactions: Allergies Allergy/AdvReac Type Severity Reaction Status Date / Time No Known Drug Allergies Allergy Verified 02/09/19 07:32 - Social History Does the pt smoke?: No Smoking Status: Never smoker Does the pt drink ETOH?: Yes Does the pt have substance abuse?: No - Immunizations Immunizations are current?: Yes - POLST Patient has POLST: No PD ED PE NORMAL - Vitals Vital signs reviewed: Yes - General General: Alert and oriented X 3, No acute distress - HEENT HEENT: Other (Well approximated laceration to the forehead with sutures in place, no signs of infection, clean and dry.) - Neck Neck: Supple, no meningeal sign - Cardiac Cardiac: RRR, No murmur - Respiratory Respiratory: Clear bilaterally - Abdomen Abdomen: Soft, Non tender, Non distended - Derm Derm: Warm and dry - Extremities Extremities: No deformity - Neuro Neuro: Alert and oriented X 3, lactation coordinator 2-12 intact, No motor deficit, No sensory deficit, Normal speech - Psych Psych: Normal mood, Normal affect Results - Vitals Vitals: Vital Signs - 24 hr 02/09/19 02/09/19 02/09/19 07:28 08:56 09:10 Temperature 36.4 C L Heart Rate 54 L 51 L Respiratory 20 17 Rate Blood Pressure 130/62 124/63 Blood Pressure 121/65 [Left] O2 Saturation 96 97 02/09/19 02/09/19 02/09/19 10:00 12:41 12:58 Temperature Heart Rate 51 L 55 L 59 L Respiratory 14 14 14 Rate Blood Pressure 112/62 135/68 H 119/71 Blood Pressure [Left] O2 Saturation 97 100 98 Oxygen O2 Source Room air - EKG (time done) 7:32 Other comments: Other comments (Rate 54, rhythm sinus, there is T wave flattening diffusely, no ST segment elevation or depression. QTC is 440.) - Labs Labs: Laboratory Tests 02/09/19 02/09/19 02/09/19 07:40 07:40 08:25 WBC 4.6 L RBC 4.62 Hgb 14.5 Hct 42.6 MCV 92.2 MCH 31.4 H MCHC 34.0 RDW 12.1 Plt Count 158 MPV 9.1 Neut # (Auto) 2.6 Lymph # (Auto) 1.5 Major # (Auto) 0.4 Eos # (Auto) 0.2 Baso # (Auto) 0.0 Absolute Nucleated RBC 0.00 Nucleated RBC % 0.0 Sodium 142 Potassium 4.0 Chloride 108 Carbon Dioxide 25 Anion Gap 9.0 BUN 21 H Creatinine 1.1 H Estimated GFR (MDRD) 50 L Glucose 116 H Calcium 9.3 Total Bilirubin 0.6 AST 20 ALT 22 Alkaline Phosphatase 55 Troponin I High Sens 3.3 Total Protein 7.1 Albumin 4.3 Globulin 2.8 Albumin/Globulin Ratio 1.5 Lipase 37 PD MEDICAL DECISION MAKING - ED course Complexity details: considered differential (Vasovagal episode, orthostasis, ACS, dysrhythmia, pacemaker dysfunction, UTI) ED course: On arrival patient is well-appearing, vital signs are notable for some bradycardia which appears to be patient's baseline. EKG shows diffuse mild T wave flattening, no convincing signs of ischemia or dysrhythmia. Labs unremarkable including a negative troponin. She has no signs of new significant head trauma or neck trauma that would necessitate imaging at this time. She had no chest pain or shortness of breath, and a troponin drawn 3 hours after her episode is normal, making ACS highly unlikely. A [employer] power lineman technician interrogated her pacemaker, it has adequate battery life, good impedance, it is pacing around 4% of the time, and she is in a [place] rhythm otherwise. Her rate is currently set at 50, and she has not had any episodes of bradycardia below this. Patient was able to get up and ambulate without issue, and after she received fluids she had no orthostatic changes, and no symptoms upon standing and walking. Given that she prevously passed out shortly after standing up from the bathroom, I do think that this was likely an orthostatic episode. I offered the patient admission for further observation and cardiac monitoring, after discussion with her she would prefer to follow-up with her templer head and primary care provider, which I think is reasonable. I discussed return precautions with the patient and she was discharged home in good condition in the care of her . Departure - Departure Disposition: 01 Home, Self Care Clinical Impression: Syncope Qualifiers: Syncope type: unspecified Qualified Code(s): R55 - Syncope and collapse Condition: Good Instructions: ED Fainting Unkn Cause Follow-Up: Rosa Isela Nieves PA-C [Primary Care Provider] - Your,Lime Mixer Tender [Other] (Call for next available appointment) Comments: You were seen today for an episode of passing out. Your lab work is reassuring, and your pacemaker appears to be functioning properly. Please follow-up with your templer head as soon as possible, as well as your primary care provider. If you develop any new or concerning symptoms such as chest pain, trouble breathing, another episode of passing out, severe headache or confusion, return to the emergency department immediately. Hydrate adequately, and avoid doing any activity that could cause you harm if you pass out, such as climbing a ladder or swimming unsupervised. Discharge Date/Time: 02/09/19 12:59
[2019-02-09 08:00] LABS: BASOPHILS % (AUTO) 0.7 %; EOSINOPHILS # (AUTO) 0.2 10^3/uL (0.0-0.7); EOSINOPHILS % (AUTO) 3.5 %; HGB - HEMOGLOBIN 14.5 g/dL (12.0-16.0); LYMPHOCYTES # (AUTO) 1.5 10^3/uL (1.5-3.5); LYMPHOCYTES % (AUTO) 31.8 %; MEAN CORPUSCULAR HEMOGLOBIN 31.4 pg (27.0-31.0); MEAN CORPUSCULAR VOLUME 92.2 fL (81.0-99.0); MEAN PLATELET VOLUME 9.1 fL (7.9-10.8); MONOCYTES # (AUTO) 0.4 10^3/uL (0.0-1.0); MONOCYTES % (AUTO) 7.6 %; NEUTROPHILS # (AUTO) 2.6 10^3/uL (1.5-6.6); PLT - PLATELET COUNT 158 10^3/uL (130-450); RED BLOOD COUNT 4.62 10^6/uL (4.20-5.40); RED CELL DISTRIBUTION WIDTH 12.1 % (12.0-15.0); WHITE BLOOD COUNT 4.6 x10^3/uL (4.8-10.8)
[2019-02-09 08:05] LABS: ALBUMIN 4.3 g/dL (3.2-5.5); ALBUMIN/GLOBULIN RATIO 1.5 (1.0-2.2); BILIRUBIN,TOTAL 0.6 mg/dL (0.2-1.0); CALCIUM 9.3 mg/dL (8.5-10.3); CREATININE 1.1 mg/dL (0.4-1.0); TOTAL PROTEIN 7.1 g/dL (6.7-8.2)
[2019-02-09 13:00] VITALS: BP 119/71
== END 2019-02-09 12:59 | disposition home or self-care (01) ==
LOC: ED 07:21
DX: R55 Syncope and collapse (principal); R00.1 Bradycardia, unspecified; R94.31 Abnormal electrocardiogram [ECG] [EKG]; Z95.5 Presence of coronary angioplasty implant and graft; Z79.82 Long term (current) use of aspirin
CPT/HCPCS: 36415; 80053; 83690; 84484; 85025; 93005; 99283; 99284

== ENCOUNTER 2019-05-18 13:26 | Outpatient (CLI) | payer MEDICARE ==
[2019-05-18 17:23] LABS: BASOPHILS % (AUTO) 0.4 %; EOSINOPHILS # (AUTO) 0.2 10^3/uL (0.0-0.7); EOSINOPHILS % (AUTO) 2.9 %; HGB - HEMOGLOBIN 14.6 g/dL (12.0-16.0); LYMPHOCYTES # (AUTO) 2.6 10^3/uL (1.5-3.5); LYMPHOCYTES % (AUTO) 37.5 %; MEAN CORPUSCULAR HGB CONC 32.2 g/dL (32.0-36.0); MEAN CORPUSCULAR VOLUME 93.4 fL (81.0-99.0); MEAN PLATELET VOLUME 9.2 fL (7.9-10.8); MONOCYTES # (AUTO) 0.5 10^3/uL (0.0-1.0); MONOCYTES % (AUTO) 7.2 %; NEUTROPHILS # (AUTO) 3.5 10^3/uL (1.5-6.6); NEUTROPHILS % (AUTO) 51.6 %; PLT - PLATELET COUNT 206 10^3/uL (130-450); RED BLOOD COUNT 4.86 10^6/uL (4.20-5.40); RED CELL DISTRIBUTION WIDTH 11.9 % (12.0-15.0); WHITE BLOOD COUNT 6.9 x10^3/uL (4.8-10.8)
[2019-05-18 18:05] LABS: ALBUMIN 4.5 g/dL (3.2-5.5); ALBUMIN/GLOBULIN RATIO 1.4 (1.0-2.2); ALKALINE PHOSPHATASE 54 IU/L (42-121); ALT ALANINE AMINOTRANSFERASE 23 IU/L (10-60); AMYLASE 71 U/L (28-100); AST ASPARTATE AMINOTRANSFERASE 20 IU/L (10-42); BILIRUBIN,TOTAL 0.5 mg/dL (0.2-1.0); BUN - BLOOD UREA NITROGEN 16 mg/dL (6-20); CALCIUM 9.5 mg/dL (8.5-10.3); CARBON DIOXIDE - CO2 26 mmol/L (21-32); CHLORIDE 105 mmol/L (101-111); GFR - MDRD 55 (>89); GLUCOSE 94 mg/dL (70-100); LIPASE 46 U/L (22-51); SODIUM 142 mmol/L (135-145); TOTAL PROTEIN 7.7 g/dL (6.7-8.2)
[2019-05-18 18:07] LABS: CRP - C-REACTIVE PROTEIN < 1.0 mg/dL (0-1.0)
== END 2019-05-18 13:27 | disposition home or self-care (01) ==
LOC: LAB.S 13:26
PROVIDERS: ATTEND Family Medicine
DX: N39.0 Urinary tract infection, site not specified (principal); R10.30 Lower abdominal pain, unspecified
CPT/HCPCS: 36415; 80053; 82150; 83690; 85025; 85651; 86140

== ENCOUNTER 2019-05-19 08:00 | Outpatient (CLI) | payer MEDICARE | END 2019-05-19 23:59 | disposition home or self-care (01) | LOC: LAB.R 08:00 | PROVIDERS: ATTEND Family Medicine | DX: N39.0 Urinary tract infection, site not specified (principal) | CPT/HCPCS: 87086 ==

== ENCOUNTER 2019-05-31 09:33 | Outpatient (CLI) | payer MEDICARE ==
[2019-05-31 18:13] LABS: CHOL/HDL RATIO 4.9 (<4.4); CHOLESTEROL 197 mg/dL; HDL CHOLESTEROL 40 mg/dL; LDL CHOLESTEROL,CALCULATED 114 mg/dL; LDL/HDL RATIO 2.9 (<4.4); VLDL CHOLESTEROL 43 mg/dL
== END 2019-05-31 09:34 | disposition home or self-care (01) ==
LOC: LAB.S 09:33
PROVIDERS: ATTEND Physician Assistant Medical
DX: E78.5 Hyperlipidemia, unspecified (principal); N39.0 Urinary tract infection, site not specified; K22.2 Esophageal obstruction
CPT/HCPCS: 36415; 80061; 81001; 81003; 83721; 87086

== ENCOUNTER 2019-06-03 15:28 | Outpatient (CLI) | payer MEDICARE ==
[2019-06-03] MEDS ORDERED: IOVERSOL 320 100 ML VIAL IVP ONE ×2 (15:34→17:39)
[2019-06-03] MEDS ORDERED: IOVERSOL 320 50 ML VIAL ONE (15:34)
--- NOTE | 2019-06-03 16:44 | CT Report ---
Reason: ABD, PELVIC PAIN Procedure Date: 06/03/2019 Accession Number: [id number] / [id number] Procedure: CT - Abdomen/Pelvis W CPT Code: Addended Final Report FULL RESULT: EXAM: CT ABDOMEN AND PELVIS EXAM DATE: 06/03/2019 04:25 PM. CLINICAL HISTORY: ABD, PELVIC PAIN. COMPARISONS: ABDOMEN/PELVIS W/ 04/12/2018 9:49 AM. TECHNIQUE: Routine helical CT imaging was performed through the abdomen and pelvis. IV contrast: OPTI 320 90ML. Enteric contrast: No. Reconstructions: Coronal and sagittal. In accordance with CT protocol optimization, one or more of the following dose reduction techniques were utilized for this exam: automated exposure control, adjustment of mA and/or KV based on patient size, or use of iterative reconstructive technique. FINDINGS: Lung Bases: Unremarkable. Liver: 1.5 cm low-density lesion in the anterior right lobe of the liver. Better seen as there is likely less fatty infiltration compared to the prior exam, but does not appear different in size. Gallbladder/Bile Ducts: Status post cholecystectomy. No biliary duct dilatation. Spleen: 1 cm low-density lesion in the medial spleen on image 19 of series 3. Was also present on the prior exam and is unchanged. Pancreas: Normal. Adrenal Glands: Normal. Kidneys: Normal. No masses or hydronephrosis. Peritoneal Cavity/Bowel: Normal. No free fluid, free air or adenopathy. No masses or acute inflammatory process. Appendix is not identified. Pelvic Organs: Urinary bladder is collapsed and unremarkable. Patient is status post hysterectomy. The ovaries are not identified either. Vasculature: No aneurysms or other significant abnormality. Bones: No significant abnormality. Other: Mild scoliotic curvature of the lumbar spine. No acute bony abnormality. IMPRESSION: Stable CT of the abdomen and pelvis compared to March 2018. RADIA The call report notification system was initiated by Dr. Trevor Cristina at 04:40 PM on 06/03/2019. ADDENDUM: 06/03/19 16:49 The above call report findings were discussed with Rosa Isela Nieves by Dr. Trevor Cristina at 04:49 PM on 06/03/2019. Correction: oral contrast was administered and has reached proximal to mid ileum.
[2019-06-03] MEDS ORDERED: IOVERSOL 320 50 ML VIAL PO ONE (17:39)
== END 2019-06-03 15:29 | disposition home or self-care (01) ==
LOC: DI 15:28
PROVIDERS: ATTEND Physician Assistant Medical
DX: R10.30 Lower abdominal pain, unspecified (principal); R10.2 Pelvic and perineal pain; K76.9 Liver disease, unspecified
CPT/HCPCS: 74177; Q9967

== ENCOUNTER 2019-08-26 10:36 | Outpatient (CLI) | payer MEDICARE ==
[2019-08-26] MEDS ORDERED: IOVERSOL 320 50 ML VIAL ONE (10:47)
[2019-08-26] MEDS ORDERED: IOVERSOL 320 100 ML VIAL IVP ONE (10:47)
[2019-08-26 10:56] LABS: BASOPHILS % (AUTO) 0.8 %; EOSINOPHILS # (AUTO) 0.2 10^3/uL (0.0-0.7); EOSINOPHILS % (AUTO) 4.1 %; HGB - HEMOGLOBIN 14.8 g/dL (12.0-16.0); LYMPHOCYTES # (AUTO) 1.8 10^3/uL (1.5-3.5); MEAN CORPUSCULAR HEMOGLOBIN 31.8 pg (27.0-31.0); MEAN CORPUSCULAR HGB CONC 34.4 g/dL (32.0-36.0); MEAN CORPUSCULAR VOLUME 92.3 fL (81.0-99.0); MEAN PLATELET VOLUME 8.9 fL (7.9-10.8); MONOCYTES # (AUTO) 0.4 10^3/uL (0.0-1.0); MONOCYTES % (AUTO) 7.5 %; NEUTROPHILS # (AUTO) 2.6 10^3/uL (1.5-6.6); PLT - PLATELET COUNT 160 10^3/uL (130-450); RED BLOOD COUNT 4.66 10^6/uL (4.20-5.40); WHITE BLOOD COUNT 5.1 x10^3/uL (4.8-10.8)
[2019-08-26 11:08] LABS: ALBUMIN 4.4 g/dL (3.2-5.5); ALBUMIN/GLOBULIN RATIO 1.5 (1.0-2.2); BILIRUBIN,TOTAL 0.7 mg/dL (0.2-1.0); CALCIUM 9.4 mg/dL (8.5-10.3); CREATININE 1.1 mg/dL (0.4-1.0); TOTAL PROTEIN 7.3 g/dL (6.7-8.2)
--- NOTE | 2019-08-26 16:51 | CT Report ---
Reason: LLQ,PERIMBILICAL ABD PX Procedure Date: 08/26/2019 Accession Number: [id number] / [id number] Procedure: CT - Abdomen/Pelvis W CPT Code: Final Report FULL RESULT: EXAM: CT ABDOMEN AND PELVIS EXAM DATE: 08/26/2019 12:00 PM. CLINICAL HISTORY: Left lower quadrant, periumbilical abdominal pain. COMPARISONS: ABDOMEN/PELVIS W/ 06/03/2019 4:21 PM. TECHNIQUE: Routine helical CT imaging was performed through the abdomen and pelvis. IV contrast: 100 mL of Optiray 320. Enteric contrast: Positive. Reconstructions: Coronal and sagittal. In accordance with CT protocol optimization, one or more of the following dose reduction techniques were utilized for this exam: automated exposure control, adjustment of mA and/or KV based on patient size, or use of iterative reconstructive technique. FINDINGS: Lung Bases: Linear bibasilar scar/atelectasis. Leads in the right atrium and right ventricle. Heart size is stable. Small hiatal hernia. Liver: 2 hepatic lesions again seen, the largest in the medial right lobe measuring 16 mm. Fatty liver. Patent portal vein. Gallbladder/Bile Ducts: Status post cholecystectomy. No biliary ductal dilatation. Spleen: 1 cm low-density lesion medial spleen, unchanged. No new splenic lesions. Spleen is stable in size. Pancreas: Mild pancreatic parenchymal volume loss. No peripancreatic edema. Adrenal Glands: Normal. Kidneys: Normal. No masses or hydronephrosis. Peritoneal Cavity/Bowel: Stomach is mildly distended and unremarkable. No bowel obstruction or bowel wall thickening. No free air. No enlarged retroperitoneal or mesenteric lymph nodes. Small to moderate volume of stool in the colon. No diverticulitis. No intra-abdominal fluid collections. Appendix not visualized. No pericecal inflammatory changes. Pelvic Organs: Urinary bladder is mildly distended and unremarkable. Uterus is absent. No pelvic adenopathy. No pelvic free fluid. Vasculature: Vascular calcifications. No aneurysm. Mesenteric vasculature is patent. Rectocele noted. Bones: Degenerative changes of the lower thoracic and lumbar spine and both hip joints. Levoscoliosis of the lower lumbar spine. No acute osseous abnormalities. Other: No subcutaneous or intramuscular abnormalities are identified. IMPRESSION: 1. No bowel obstruction. No evidence of diverticulitis. 2. Status post cholecystectomy and hysterectomy. 3. Hepatic low-attenuation lesions, stable. No new hepatic lesions. Fatty liver. 4. No nephrolithiasis. No hydronephrosis. No bladder calculi. RADIA
[2019-08-29] MEDS ORDERED: IOVERSOL 320 50 ML VIAL PO ONE (09:34)
[2019-08-29] MEDS ORDERED: IOVERSOL 320 100 ML VIAL IVP ONE (09:34)
== END 2019-08-26 10:37 | disposition home or self-care (01) ==
LOC: LAB 10:36
PROVIDERS: ATTEND Physician Assistant
DX: K58.1 Irritable bowel syndrome with constipation (principal); R10.32 Left lower quadrant pain; R10.33 Periumbilical pain; K76.9 Liver disease, unspecified; K76.0 Fatty (change of) liver, not elsewhere classified; Z90.49 Acquired absence of other specified parts of digestive tract; Z90.710 Acquired absence of both cervix and uterus
CPT/HCPCS: 36415; 74177; 80053; 85025; Q9967

== ENCOUNTER 2019-10-19 09:27 | Outpatient (CLI) | payer MEDICARE ==
[2019-10-19 15:43] LABS: BASOPHILS % (AUTO) 0.7 %; EOSINOPHILS # (AUTO) 0.2 10^3/uL (0.0-0.7); HGB - HEMOGLOBIN 14.4 g/dL (12.0-16.0); LYMPHOCYTES # (AUTO) 1.8 10^3/uL (1.5-3.5); LYMPHOCYTES % (AUTO) 39.9 %; MEAN CORPUSCULAR HEMOGLOBIN 31.4 pg (27.0-31.0); MEAN CORPUSCULAR HGB CONC 33.8 g/dL (32.0-36.0); MEAN CORPUSCULAR VOLUME 92.8 fL (81.0-99.0); MEAN PLATELET VOLUME 9.6 fL (7.9-10.8); MONOCYTES # (AUTO) 0.3 10^3/uL (0.0-1.0); MONOCYTES % (AUTO) 6.5 %; NEUTROPHILS # (AUTO) 2.1 10^3/uL (1.5-6.6); NEUTROPHILS % (AUTO) 47.7 %; PLT - PLATELET COUNT 177 10^3/uL (130-450); RED BLOOD COUNT 4.59 10^6/uL (4.20-5.40); RED CELL DISTRIBUTION WIDTH 12.2 % (12.0-15.0); WHITE BLOOD COUNT 4.4 x10^3/uL (4.8-10.8)
[2019-10-19 16:01] LABS: ALBUMIN 4.1 g/dL (3.2-5.5); ALBUMIN/GLOBULIN RATIO 1.3 (1.0-2.2); BILIRUBIN,TOTAL 0.4 mg/dL (0.2-1.0); CREATININE 1.1 mg/dL (0.4-1.0); TOTAL PROTEIN 7.2 g/dL (6.7-8.2)
== END 2019-10-19 09:28 | disposition home or self-care (01) ==
LOC: LAB.S 09:27
PROVIDERS: ATTEND Family Medicine
DX: R10.9 Unspecified abdominal pain (principal); R14.0 Abdominal distension (gaseous)
CPT/HCPCS: 36415; 80053; 82150; 83690; 85025

== ENCOUNTER 2020-09-28 08:00 | Outpatient (CLI) | payer MEDICARE ==
[2020-09-28 20:47] LABS: BILIRUBIN,URINE NEGATIVE (NEGATIVE); GLUCOSE, URINE (UA) NEGATIVE (NEGATIVE); KETONES,URINE (UA) NEGATIVE (NEGATIVE); LEUKOCYTE ESTERASE, URINE SMALL (NEGATIVE); NITRITE,URINE NEGATIVE (NEGATIVE); OCCULT BLOOD,URINE NEGATIVE (NEGATIVE); PH,URINE 5.5 PH (5.0-7.5); PROTEIN,URINE NEGATIVE (NEGATIVE); UROBILINOGEN,URINE 0.2 (NORMAL) E.U./dL (NORMAL)
[2020-09-28 20:59] LABS: BACTERIA,URINE Rare /HPF (None Seen); CLARITY,URINE CLEAR (CLEAR); RBC,URINE 0-5 /HPF (0-5); SQUAMOUS EPITHELIAL CELL,UR RARE Squamous (<= Few); WBC,URINE 0-3 /HPF (0-5)
== END 2020-09-28 23:59 | disposition home or self-care (01) ==
LOC: LAB.S 08:00
PROVIDERS: ATTEND Emergency Medicine
DX: R10.9 Unspecified abdominal pain (principal)
CPT/HCPCS: 81001; 87086

== ENCOUNTER 2020-12-03 08:00 | Outpatient (CLI) | payer MEDICARE ==
[2020-12-03 20:11] LABS: BILIRUBIN,URINE NEGATIVE (NEGATIVE); GLUCOSE, URINE (UA) NEGATIVE (NEGATIVE); KETONES,URINE (UA) NEGATIVE (NEGATIVE); LEUKOCYTE ESTERASE, URINE TRACE (NEGATIVE); NITRITE,URINE NEGATIVE (NEGATIVE); OCCULT BLOOD,URINE NEGATIVE (NEGATIVE); PROTEIN,URINE NEGATIVE (NEGATIVE); UROBILINOGEN,URINE 0.2 (NORMAL) E.U./dL (NORMAL)
[2020-12-03 20:32] LABS: CLARITY,URINE CLEAR (CLEAR)
[2020-12-03 20:33] LABS: BACTERIA,URINE None Seen /HPF (None Seen); RBC,URINE None Seen /HPF (0-5); SQUAMOUS EPITHELIAL CELL,UR RARE Squamous (<= Few); WBC CLUMPS,URINE PRESENT; WBC,URINE 0-3 /HPF (0-5)
== END 2020-12-03 23:59 | disposition home or self-care (01) ==
LOC: LAB.S 08:00
PROVIDERS: ATTEND Emergency Medicine
DX: R10.9 Unspecified abdominal pain (principal)
CPT/HCPCS: 81001; 87086

== ENCOUNTER 2021-05-30 08:50 | Outpatient (CLI) | payer MEDICARE ==
[2021-05-30 15:13] LABS: BASOPHILS # (AUTO) 0.1 10^3/uL (0.0-0.1); BASOPHILS % (AUTO) 0.9 %; EOSINOPHILS # (AUTO) 0.3 10^3/uL (0.0-0.7); EOSINOPHILS % (AUTO) 5.5 %; HCT - HEMATOCRIT 46.2 % (37.0-47.0); HGB - HEMOGLOBIN 15.3 g/dL (12.0-16.0); LYMPHOCYTES # (AUTO) 1.7 10^3/uL (1.5-3.5); LYMPHOCYTES % (AUTO) 31.9 %; MEAN CORPUSCULAR HEMOGLOBIN 31.4 pg (27.0-31.0); MEAN CORPUSCULAR HGB CONC 33.1 g/dL (32.0-36.0); MEAN CORPUSCULAR VOLUME 94.7 fL (81.0-99.0); MEAN PLATELET VOLUME 9.3 fL (7.9-10.8); MONOCYTES # (AUTO) 0.4 10^3/uL (0.0-1.0); MONOCYTES % (AUTO) 6.8 %; NEUTROPHILS # (AUTO) 2.9 10^3/uL (1.5-6.6); NEUTROPHILS % (AUTO) 54.7 %; PLT - PLATELET COUNT 192 10^3/uL (130-450); RED BLOOD COUNT 4.88 10^6/uL (4.20-5.40); WHITE BLOOD COUNT 5.3 x10^3/uL (4.8-10.8)
[2021-05-30 15:36] LABS: ALBUMIN 4.3 g/dL (3.2-5.5); ALBUMIN/GLOBULIN RATIO 1.4 (1.0-2.2); ALKALINE PHOSPHATASE 50 IU/L (42-121); ALT ALANINE AMINOTRANSFERASE 25 IU/L (10-60); AST ASPARTATE AMINOTRANSFERASE 23 IU/L (10-42); BUN - BLOOD UREA NITROGEN 17 mg/dL (6-20); CALCIUM 9.2 mg/dL (8.5-10.3); CARBON DIOXIDE - CO2 30 mmol/L (21-32); CHLORIDE 102 mmol/L (101-111); CHOL/HDL RATIO 4.7 (<4.4); CHOLESTEROL 216 mg/dL; GFR - MDRD 55 (>89); GLUCOSE 121 mg/dL (70-100); HDL CHOLESTEROL 46 mg/dL; LDL CHOLESTEROL,CALCULATED 111 mg/dL; LDL/HDL RATIO 2.4 (<4.4); POTASSIUM 4.3 mmol/L (3.5-5.0); SODIUM 141 mmol/L (135-145); TOTAL PROTEIN 7.4 g/dL (6.7-8.2); TRIGLYCERIDES 296 mg/dL; VLDL CHOLESTEROL 59 mg/dL
[2021-05-30 16:16] LABS: THYROID STIMULATING HORMONE 1.28 uIU/mL (0.34-5.60)
[2021-05-30 23:00] LABS: ESTIMATED AVERAGE GLUCOSE 103 mg/dL (70-100); HEMOGLOBIN A1c% 5.2 % (4.27-6.07)
== END 2021-05-30 08:51 | disposition home or self-care (01) ==
LOC: LAB.S 08:50
PROVIDERS: ATTEND Registered Nurse
DX: I10 Essential (primary) hypertension (principal); K58.9 Irritable bowel syndrome, unspecified; R73.9 Hyperglycemia, unspecified; E78.5 Hyperlipidemia, unspecified; G43.909 Migraine, unspecified, not intractable, without status migrainosus
CPT/HCPCS: 36415; 80053; 80061; 83036; 83721; 84443; 85025

== ENCOUNTER 2021-07-09 09:42 | Outpatient (CLI) | payer MEDICARE ==
--- NOTE | 2021-07-09 14:27 | DEXA Report ---
PROCEDURE: Dexa Spine and/or Hip INDICATIONS: POST MENOPAUSAL STATUS TECHNIQUE: Dual energy x-ray absorptiometry (DXA) was performed on a [employer] System. Regions measur ed are the AP Spine, femoral neck, and if needed forearm. COMPARISON: None. FINDINGS: Lumbar Spine: Bone Mineral Density 1.453 g/cm/cm,T score 2.3, normal Left Hip: Bone Mineral Density 1.050 g/cm/cm,T score 0.3, normal Left Femoral Neck: Bone Mineral Density 0.993 g/cm/cm, T score -0.3, normal (T score greater or equal to -1.0: NORMAL) (T score from -1.1 to -2.4: OSTEOPENIA) (T score less than or equal to -2.5 to: OSTEOPOROSIS) Impression: Bone mineral density within normal limits and minimally decreased when compared to the exam from 08/10. Patients with diagnosis of osteoporosis or osteopenia should have regular bone mineral density assess ment. For those eligible for Medicare, routine testing is allowed once every 2 years. Testing frequ ency can be increased for patients who have rapidly progressing disease or for those who are receivin g medical therapy to restore bone mass. Reviewed by: Obdulio Pandey MD on 07/09/2021 2:26 PM PDT Approved by: Obdulio Pandey MD on 07/09/2021 2:26 PM PDT Station ID: [id number]
== END 2021-07-09 09:43 | disposition home or self-care (01) ==
LOC: DI 09:42
PROVIDERS: ATTEND Registered Nurse
DX: Z78.0 Asymptomatic menopausal state (principal)

== ENCOUNTER 2022-02-17 09:54 | Outpatient (CLI) | payer MEDICARE ==
--- NOTE | 2022-02-19 09:32 | Mammography Report ---
BILATERAL DIGITAL SCREENING MAMMOGRAM 3D/2D: 02/17/2022 CLINICAL: Routine screening. Family history of breast cancer. Comparison is made to exams dated: 01/05/2018 mammogram - [facility], 03/20/2014 ne mmogram, and 03/04/2012 mammogram - [facility]. Both breasts are almost entirely fatty (category a/<25% glandular tissue). No significant masses, calcifications, or other findings are seen in either breast. There has been no significant interval change. IMPRESSION: NEGATIVE There is no mammographic evidence of malignancy. A 1 year screening mammogram is recommended. Based on the Tyrer Cuzick model (a risk assessment model) the patients lifetime risk is 14.1% and he r 10 year risk is 8.4%. According to the ACR, ACS, and NCCN guidelines, an annual breast MRI exam gaurav ng with mammogram is recommended if the patients lifetime risk is 20% or greater. This exam was interpreted at Station ID: [id number]. NOTE: For mammograms, a report in lay terms will be sent to the patient. Approximately 15% of breast malignancies will not be visualized mammographically. In the management of a palpable breast mass, a negative mammogram must not discourage biopsy of a clinically suspicious lesion. Electronically Signed By: Richar john/penrad:02/17/2022 14:49:39 ACR BI-RADS Category 1: Negative 3341F PARENCHYMAL PATTERN: (F) - The breast(s) demonstrate(s) diffuse fatty replacement. BI-RADS CATEGORY: (1) - 1 RECOMMENDATION: (ANNUAL) - Recommend routine annual screening mammography. [id number] 1 year screening LATERALITY: (B)
== END 2022-02-17 09:55 | disposition home or self-care (01) ==
LOC: DI.S 09:54
DX: Z12.31 Encounter for screening mammogram for malignant neoplasm of breast (principal); Z80.3 Family history of malignant neoplasm of breast

== ENCOUNTER 2022-04-08 04:01 | Emergency (ER) | payer MEDICARE ==
[2022-04-08] MEDS ORDERED: SODIUM CHLORIDE 0.9% 1,000 ML IV STA (04:08)
[2022-04-08] MEDS ORDERED: ONDANSETRON 4 MG/2 ML VIAL IVP STA (04:15)
--- NOTE | 2022-04-08 04:21 | ED Physician Documentation ---
History of Present Illness - Stated complaint Stated Complaint: SYNCOPE - History obtained from History obtained from: Patient, EMS - Additonal information Additional information: The patient is brought to the emergency department by EMS for chief complaint of syncopal episode and diarrhea. The patient has had diarrhea for nearly a month, she states, and then for the last week, has also diarrhea. Vomiting. She states that she has not been able to see her primary doctor about this. She says she has called the nurse hotline and they have just told her to eat crackers and drink plenty of fluids. The patient denies any fevers or chills. No abdominal pain. She has been trying to drink plenty of water. She states that tonight, she got up to go to the bathroom and on her way back, she suddenly became lightheaded. The patient had a very brief syncopal episode when she fell to the floor but does not think she hit her head. Her was nearby and was able to come and get her up. The patient had 2 other episodes of very brief syncope and then medics were called. They state that when they arrived, the patient was normotensive and has been ever since being transported. The patient states she has had syncopal episodes since she was young and well into adulthood, but they have not happened in a while, especially since she got her pacemaker. The patient denies any palpitations or chest pain or shortness of breath either during the event or now. No lightheadedness currently. No other complaints at this time. Review of Systems Ten Systems: 10 systems reviewed and negative Constitutional: reports: Reviewed and negative Eyes: reports: Reviewed and negative Ears: reports: Reviewed and negative Nose: reports: Reviewed and negative Throat: reports: Reviewed and negative Cardiac: reports: Reviewed and negative Respiratory: reports: Reviewed and negative GI: reports: Nausea, Vomiting : reports: Reviewed and negative Skin: reports: Reviewed and negative Musculoskeletal: reports: Reviewed and negative Neurologic: reports: Reviewed and negative Psychiatric: reports: Reviewed and negative Endocrine: reports: Reviewed and negative Immunocompromised: reports: Reviewed and negative PD PAST MEDICAL HISTORY - Past Medical History Cardiovascular: Arrhythmia, Other Respiratory: None, Shortness of breath Endocrine/Autoimmune: None GI: GERD, GI bleed, Cholelithiasis : Kidney stones, Other HEENT: Chronic hearing loss Psych: Depression, Anxiety, Panic attacks Musculoskeletal: None Derm: None - Past Surgical History Past Surgical History: Yes 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, 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 Cardiovascular: Pacemaker HEENT: Tonsil/Adenoidectomy - Present Medications Home Medications: Ambulatory Orders Medication Instructions Recorded Confirmed Pantoprazole [Protonix] 40 mg PO DAILY 10/25/15 04/08/22 SUMAtriptan [Imitrex] 50 mg PO DAILY PRN 10/25/15 04/08/22 Simvastatin 40 mg PO DAILY 10/25/15 04/08/22 Ascorbic Acid [Vitamin C] 500 mg PO DAILY 08/28/17 04/08/22 Aspirin [Adult Low Dose Aspirin EC] 81 mg PO DAILY 08/28/17 04/08/22 Ciclopirox/Ure/Camph/Menth/Euc 1 applic TOP DAILY PRN 08/28/17 04/08/22 [Ciclopirox 8% Treatment Kit] Ibuprofen 600 mg PO TID PRN 08/28/17 04/08/22 Mv-Mn/Folic AC/Calcium/Vit K1 1 each PO DAILY 08/28/17 04/08/22 [Women's 50 Plus Daily Formula] Peppermint Oil [Pepogest] 1 ml TOP DAILY PRN 08/28/17 04/08/22 nadoloL [Nadolol] 60 mg PO DAILY 10/29/17 04/08/22 Cyclobenzaprine [Flexeril] 10 mg PO TID PRN #20 tablet 01/24/18 04/08/22 Hydrocodone/Acetaminophen 1 - 2 each PO Q6H PRN #14 tablet 01/24/18 04/08/22 [Hydrocodon-Acetaminophen 5-325] Ondansetron Odt [Zofran] 4 mg TL Q6H PRN #14 tablet 04/08/22 - Allergies Allergies/Adverse Reactions: Allergies Allergy/AdvReac Type Severity Reaction Status Date / Time No Known Drug Allergies Allergy Verified 04/08/22 04:15 - Social History Does the pt smoke?: No Smoking Status: Never smoker Does the pt drink ETOH?: Yes Does the pt have substance abuse?: No - Immunizations Immunizations are current?: Yes - POLST Patient has POLST: No PD ED PE NORMAL - Vitals Vital signs reviewed: Yes - General General: Alert and oriented X 3, No acute distress, Well developed/nourished - HEENT HEENT: Atraumatic, PERRL, EOMI, Moist mucous membranes - Neck Neck: Supple, no meningeal sign - Cardiac Cardiac: RRR, No murmur, Strong equal pulses - Respiratory Respiratory: No respiratory distress, Clear bilaterally - Back Back: No spinal TTP - Derm Derm: Normal color, Warm and dry, No rash - Extremities Extremities: No deformity - Neuro Neuro: Alert and oriented X 3 - Psych Psych: Normal mood, Normal affect Results - Vitals Vitals: Vital Signs - 24 hr 04/08/22 04/08/22 04:15 05:25 Temperature 36.8 C 36.8 C Heart Rate 66 63 Respiratory 16 18 Rate Blood Pressure 137/63 H 115/63 O2 Saturation 97 96 Oxygen O2 Source Room air - EKG (time done) 0406 Rate: Rate (enter#) (66) Rhythm: NSR [place]: Normal QRS: Normal Ischemia: Normal ST segments Compare to prior EKG: Old EKG unavailable Computer interpretation: Agree with computer - Labs Labs: Laboratory Tests 04/08/22 04/08/22 04:10 04:10 WBC 7.3 RBC 5.24 Hgb 15.9 Hct 48.6 H MCV 92.7 MCH 30.3 MCHC 32.7 RDW 12.5 Plt Count 148 MPV 9.5 Neut # (Auto) 5.7 Lymph # (Auto) 0.9 L [place] # (Auto) 0.5 Eos # (Auto) 0.1 Baso # (Auto) 0.0 Absolute Nucleated RBC 0.00 Nucleated RBC % 0.0 Sodium 138 Potassium 3.8 Chloride 98 L Carbon Dioxide 26 Anion Gap 14.0 H BUN 22 H Creatinine 1.1 H Estimated GFR (MDRD) 49 L Glucose 130 H Calcium 9.1 Total Bilirubin 0.9 AST 55 H ALT 70 H Alkaline Phosphatase 55 Total Protein 7.7 Albumin 4.4 Globulin 3.3 Albumin/Globulin Ratio 1.3 Lipase 28 PD MEDICAL DECISION MAKING - ED course Complexity details: reviewed results, re-evaluated patient, considered differential, d/w patient ED course: The patient was given IV fluids and Zofran, and laboratory studies were sent. The patient's EKG showed normal sinus rhythm. Laboratory studies showed a BUN of 22 and a creatinine of 1.1. The patient did not have any other significant lab abnormalities. She reported feeling much better after the IV fluids, and was able to sit up and ambulate through the emergency department without difficulty. I felt she was stable for discharge home. The patient had reported a history of frequent fainting episodes from childhood through adulthood and I felt that most likely, her propensity for fainting, plus the dehydration she had, had caused her brief syncopal episodes. I have advised her that she needs to drink 8 to 10 cups of water every day to be sure she is well-hydrated while she is sick. We have discussed the usual indications for follow-up and return. Departure - Departure Disposition: 01 Home, Self Care Clinical Impression: Dehydration, Gastroenteritis Syncope Qualifiers: Syncope type: unspecified Qualified Code(s): R55 - Syncope and collapse Condition: Stable Instructions: ED Dehydration, ED Syncope Vasovagal, ED Gastroenteritis Viral Prescriptions: Ondansetron Odt [Zofran] 4 mg TL Q6H PRN #14 tablet PRN Reason: Nausea / Vomiting Comments: Your EKG and compliance monitor reading look great. The remainder of your vital signs also are normal. Overall, your labs look fairly good, but do show changes in your kidney labs that are consistent with dehydration. This is not surpris ing, given the vomiting and diarrhea you have had. Given that you are diarrhea has been going on so long, it is importantly follow-up with your primary doctor. It is still possible that you have gotten a succession of viral illnesses that have kept the symptoms going, but if the diarrhea continues, you should talk to your doctor about getting outpatient testing for other potential causes of the symptoms. You have done very well here after receiving an entire bag of IV fluids, and of walked well without assistance. You may take the nausea medicine prescribed, as needed for nausea. The prescription for this has been electronically transmitted to the [facility] in [place]. Discharge Date/Time: 04/08/22 05:25
[2022-04-08 04:25] LABS: BASOPHILS % (AUTO) 0.3 %; EOSINOPHILS # (AUTO) 0.1 10^3/uL (0.0-0.7); EOSINOPHILS % (AUTO) 1.2 %; HCT - HEMATOCRIT 48.6 % (37.0-47.0); HGB - HEMOGLOBIN 15.9 g/dL (12.0-16.0); LYMPHOCYTES # (AUTO) 0.9 10^3/uL (1.5-3.5); LYMPHOCYTES % (AUTO) 12.2 %; MEAN CORPUSCULAR HEMOGLOBIN 30.3 pg (27.0-31.0); MEAN CORPUSCULAR HGB CONC 32.7 g/dL (32.0-36.0); MEAN CORPUSCULAR VOLUME 92.7 fL (81.0-99.0); MEAN PLATELET VOLUME 9.5 fL (7.9-10.8); MONOCYTES # (AUTO) 0.5 10^3/uL (0.0-1.0); MONOCYTES % (AUTO) 7.4 %; NEUTROPHILS # (AUTO) 5.7 10^3/uL (1.5-6.6); NEUTROPHILS % (AUTO) 78.6 %; PLT - PLATELET COUNT 148 10^3/uL (130-450); RED BLOOD COUNT 5.24 10^6/uL (4.20-5.40); RED CELL DISTRIBUTION WIDTH 12.5 % (12.0-15.0); WHITE BLOOD COUNT 7.3 x10^3/uL (4.8-10.8)
[2022-04-08 04:38] LABS: ALBUMIN 4.4 g/dL (3.2-5.5); ALBUMIN/GLOBULIN RATIO 1.3 (1.0-2.2); BILIRUBIN,TOTAL 0.9 mg/dL (0.2-1.0); CALCIUM 9.1 mg/dL (8.5-10.3); CREATININE 1.1 mg/dL (0.4-1.0); POTASSIUM 3.8 mmol/L (3.5-5.0); TOTAL PROTEIN 7.7 g/dL (6.7-8.2)
[2022-04-08 05:27] VITALS: BP 115/63
== END 2022-04-08 05:25 | disposition home or self-care (01) ==
LOC: EDUNIT# → ED 04:01
DX: K52.9 Noninfective gastroenteritis and colitis, unspecified (principal); E86.0 Dehydration; R55 Syncope and collapse; Z95.0 Presence of cardiac pacemaker
CPT/HCPCS: 36415; 80053; 83690; 85025; 93005; 96361; 96374; 99283

== ENCOUNTER → 2022-04-08 | Outpatient (CLI) | payer MEDICARE | END | disposition critical access hospital (66) | LOC: EMS 03:31 | DX: R55 Syncope and collapse (principal); R42 Dizziness and giddiness; R61 Generalized hyperhidrosis; R19.7 Diarrhea, unspecified | CPT/HCPCS: A0425; A0427 ==

== ENCOUNTER 2022-06-16 13:00 | Outpatient (CLI) | payer MEDICARE ==
[2022-06-21 17:08] LABS: OVA + PARASITE EXAM Final report (.)
== END 2022-06-16 23:59 | disposition home or self-care (01) ==
LOC: LAB.R 13:00
DX: A04.1 Enterotoxigenic Escherichia coli infection (principal); A04.6 Enteritis due to Yersinia enterocolitica; A03.3 Shigellosis due to Shigella sonnei; A02.9 Salmonella infection, unspecified; R19.5 Other fecal abnormalities
CPT/HCPCS: 81599; 83630; 87045; 87046; 87177; 87209; 87427; 87493

== ENCOUNTER 2022-06-25 12:03 | Day surgery (SDC) | payer MEDICARE ==
[2022-06-25] MEDS ORDERED: LACTATED RINGERS 1,000 ML IV ONE (12:06)
[2022-06-25] MEDS ORDERED: PROPOFOL 500 MG/50 ML 500 MG/50 ML VIAL ONE (12:26)
--- NOTE | 2022-06-25 12:27 | ANESTHESIA ---
Pre-Anesthesia VS, & Labs - Diagnosis screening - Procedure colonoscopy Vital Signs: Temp Pulse Resp BP Pulse Ox O2 Flow Rate 36 C L 69 18 145/72 H 96 06/25/22 12:06 06/25/22 12:06 06/25/22 12:06 06/25/22 12:06 06/25/22 12:06 Height: 5 ft 7 in Weight (kg): 91.6 kg Body Mass Index: 31.6 BMI Classification: Obese - NPO Other (prep as directed) - Is Patient ?: No Home Medications and Allergies Home Medications: Ambulatory Orders Atorvastatin [Lipitor] 2 tab PO DAILY 06/25/22 Escitalopram [Lexapro] 1 tab PO DAILY 06/25/22 Memantine [Namenda] 10 mg PO BID 06/25/22 Metoprolol Succinate [Toprol Xl] 1 tab PO DAILY 06/25/22 amLODIPine [Norvasc] 1 tab PO DAILY 06/25/22 Pantoprazole [Protonix] 40 mg PO DAILY 10/25/15 SUMAtriptan [Imitrex] 50 mg PO DAILY PRN 10/25/15 Simvastatin 40 mg PO DAILY 10/25/15 Ascorbic Acid [Vitamin C] 500 mg PO DAILY 08/28/17 Aspirin [Adult Low Dose Aspirin EC] 81 mg PO DAILY 08/28/17 Ciclopirox/Ure/Camph/Menth/Euc [Ciclopirox 8% Treatment Kit] 1 applic TOP DAILY PRN 08/28/17 Ibuprofen 600 mg PO TID PRN 08/28/17 Mv-Mn/Folic AC/Calcium/Vit K1 [Women's 50 Plus Daily Formula] 1 each PO DAILY 08/28/17 Peppermint Oil [Pepogest] 1 ml TOP DAILY PRN 08/28/17 nadoloL [Nadolol] 60 mg PO DAILY 10/29/17 Allergies/Adverse Reactions: Allergies Allergy/AdvReac Type Severity Reaction Status Date / Time No Known Drug Allergies Allergy Verified 06/25/22 12:26 Anes History & Medical History - Anesthetic History Anesthesia Complications: reports: No previous complications - Medical History Cardiovascular: reports: Arrhythmia, Other Pulmonary: reports: None, Shortness of breath Gastrointestinal: reports: GERD, GI bleed, Cholelithiasis Urinary: reports: Kidney stones, Other Musculoskeletal: reports: None Endocrine/Autoimmune: reports: None Skin: reports: None Smoking Status: Never smoker - Surgical History General: reports: Cholecystectomy Eyes Ears Nose Throat (EENT): reports: Tonsil/Adenoidectomy Cardiothoracic: reports: Pacemaker Gynecologic: reports: Hysterectomy, Oophrectomy Exam General: Alert, Oriented x3 Dental: WNL Mouth Opening: Greater than 4 Fingerbreadths Neck Mobility: Normal Mallampati classification: II Thyromental Distance: greater than 6 cm Respiratory: Lungs clear Cardiovascular: Regular rate Plan Anesthesia Type: Total IV Consent for Procedure(s) Verified and Reviewed: Yes Code Status: Attempt Resuscitation ASA classification: 2-Mild systemic disease Is this case an emergency?: No
[2022-06-25] MEDS ORDERED: PROPOFOL 200 MG/20 ML VIAL IVP ONE (13:27)
[2022-06-25] MEDS ORDERED: LACTATED RINGERS 500 ML IV ONE (13:40)
[2022-06-25 14:03] VITALS: BP 116/57
== END 2022-06-25 12:04 | disposition home or self-care (01) ==
LOC: SDS 12:03
PROVIDERS: ATTEND Surgery
PROC: 0DBN8ZX Excision of Sigmoid Colon, Via Natural or Artificial Opening Endoscopic, Diagnostic (ICD-10-PCS; 2022-06-25)
PROC: 0DBF8ZX Excision of Right Large Intestine, Via Natural or Artificial Opening Endoscopic, Diagnostic (ICD-10-PCS; 2022-06-25)
PROC: 0DBH8ZZ Excision of Cecum, Via Natural or Artificial Opening Endoscopic (ICD-10-PCS; principal; 2022-06-25 13:00)
DX: R19.7 Diarrhea, unspecified (principal); R10.9 Unspecified abdominal pain; K63.89 Other specified diseases of intestine; D12.0 Benign neoplasm of cecum; K64.8 Other hemorrhoids; E66.9 Obesity, unspecified; Z68.31 Body mass index [BMI] 31.0-31.9, adult; Z95.0 Presence of cardiac pacemaker
CPT/HCPCS: 45380; J7120

== ENCOUNTER 2022-09-17 08:17 | Outpatient (CLI) | payer MEDICARE ==
[2022-09-17 14:54] LABS: BASOPHILS % (AUTO) 0.3 %; EOSINOPHILS # (AUTO) 0.3 10^3/uL (0.0-0.7); EOSINOPHILS % (AUTO) 5.4 %; HCT - HEMATOCRIT 47.1 % (37.0-47.0); HGB - HEMOGLOBIN 15.4 g/dL (12.0-16.0); LYMPHOCYTES # (AUTO) 1.9 10^3/uL (1.5-3.5); LYMPHOCYTES % (AUTO) 32.5 %; MEAN CORPUSCULAR HEMOGLOBIN 30.7 pg (27.0-31.0); MEAN CORPUSCULAR HGB CONC 32.7 g/dL (32.0-36.0); MEAN CORPUSCULAR VOLUME 93.8 fL (81.0-99.0); MEAN PLATELET VOLUME 9.6 fL (7.9-10.8); MONOCYTES # (AUTO) 0.4 10^3/uL (0.0-1.0); MONOCYTES % (AUTO) 7.1 %; NEUTROPHILS # (AUTO) 3.1 10^3/uL (1.5-6.6); NEUTROPHILS % (AUTO) 54.5 %; PLT - PLATELET COUNT 177 10^3/uL (130-450); RED BLOOD COUNT 5.02 10^6/uL (4.20-5.40); RED CELL DISTRIBUTION WIDTH 12.5 % (12.0-15.0); WHITE BLOOD COUNT 5.8 x10^3/uL (4.8-10.8)
[2022-09-17 15:18] LABS: ALBUMIN 4.4 g/dL (3.2-5.5); ALBUMIN/GLOBULIN RATIO 1.3 (1.0-2.2); ALKALINE PHOSPHATASE 53 IU/L (42-121); ALT ALANINE AMINOTRANSFERASE 63 IU/L (10-60); AST ASPARTATE AMINOTRANSFERASE 43 IU/L (10-42); BILIRUBIN,TOTAL 0.6 mg/dL (0.2-1.0); BUN - BLOOD UREA NITROGEN 21 mg/dL (6-20); CALCIUM 9.4 mg/dL (8.5-10.3); CARBON DIOXIDE - CO2 29 mmol/L (21-32); CHLORIDE 105 mmol/L (101-111); CHOL/HDL RATIO 4.4 (<4.4); CHOLESTEROL 166 mg/dL; CREATININE 1.1 mg/dL (0.4-1.0); GFR - MDRD 49 (>89); GLUCOSE 110 mg/dL (70-100); HDL CHOLESTEROL 38 mg/dL; LDL CHOLESTEROL,CALCULATED 84 mg/dL; LDL/HDL RATIO 2.2 (<4.4); POTASSIUM 4.5 mmol/L (3.5-5.0); SODIUM 142 mmol/L (135-145); TOTAL PROTEIN 7.7 g/dL (6.7-8.2); TRIGLYCERIDES 220 mg/dL; VLDL CHOLESTEROL 44 mg/dL
[2022-09-17 15:28] LABS: THYROID STIMULATING HORMONE 1.85 uIU/mL (0.34-5.60)
[2022-09-17 19:57] LABS: ESTIMATED AVERAGE GLUCOSE 114 mg/dL (70-100); HEMOGLOBIN A1c% 5.6 % (4.27-6.07)
== END 2022-09-17 08:18 | disposition home or self-care (01) ==
LOC: LAB.S 08:17
PROVIDERS: ATTEND Registered Nurse
DX: I10 Essential (primary) hypertension (principal); E78.5 Hyperlipidemia, unspecified; R73.9 Hyperglycemia, unspecified
CPT/HCPCS: 36415; 80053; 80061; 83036; 83721; 84443; 85025

== ENCOUNTER 2023-03-02 10:55 | Outpatient (CLI) | payer MEDICARE ==
--- NOTE | 2023-03-04 12:03 | Mammography Report ---
BILATERAL DIGITAL SCREENING MAMMOGRAM 3D/2D: 03/02/2023 CLINICAL: Routine screening. Family history of breast cancer. Comparison is made to exams dated: 02/17/2022 mammogram, 02/03/2018 mammogram, 01/05/2018 mammogram - [facility], 03/20/2014 mammogram, and 03/04/2012 mammogram - [facility]. Both breasts are almost entirely fatty (category a/<25% glandular tissue). No significant masses, calcifications, or other findings are seen in either breast. IMPRESSION: NEGATIVE There is no mammographic evidence of malignancy. A 1 year screening mammogram is recommended. Based on the Tyrer Cuzick model (a risk assessment model) the patients lifetime risk is 13.4% and he r 10 year risk is 8.6%. According to the ACR, ACS, and NCCN guidelines, an annual breast MRI exam gaurav ng with mammogram is recommended if the patients lifetime risk is 20% or greater. This exam was interpreted at Station ID: [id number]. NOTE: For mammograms, a report in lay terms will be sent to the patient. Approximately 15% of breast malignancies will not be visualized mammographically. In the management of a palpable breast mass, a negative mammogram must not discourage biopsy of a clinically suspicious lesion. Electronically Signed By: Jeannie Perez M.D., PH.D eb/gita:03/04/2023 00:29:41 letter sent: No_Letter ACR BI-RADS Category 1: Negative 3341F PARENCHYMAL PATTERN: (F) - The breast(s) demonstrate(s) diffuse fatty replacement. BI-RADS CATEGORY: (1) - 1 Mammogram [id number] 1 year screening LATERALITY: (B)
== END 2023-03-02 10:56 | disposition home or self-care (01) ==
LOC: DI.N 10:55
PROVIDERS: ATTEND Registered Nurse
DX: Z12.31 Encounter for screening mammogram for malignant neoplasm of breast (principal); Z80.3 Family history of malignant neoplasm of breast

== ENCOUNTER 2023-05-05 08:59 | Outpatient (CLI) | payer MEDICARE ==
[2023-05-05 15:15] LABS: BASOPHILS # (AUTO) 0.1 10^3/uL (0.0-0.1); BASOPHILS % (AUTO) 0.7 %; EOSINOPHILS # (AUTO) 0.2 10^3/uL (0.0-0.7); EOSINOPHILS % (AUTO) 2.5 %; HCT - HEMATOCRIT 50.5 % (37.0-47.0); HGB - HEMOGLOBIN 16.1 g/dL (12.0-16.0); LYMPHOCYTES # (AUTO) 2.3 10^3/uL (1.5-3.5); LYMPHOCYTES % (AUTO) 28.2 %; MEAN CORPUSCULAR HEMOGLOBIN 30.7 pg (27.0-31.0); MEAN CORPUSCULAR HGB CONC 31.9 g/dL (32.0-36.0); MEAN CORPUSCULAR VOLUME 96.2 fL (81.0-99.0); MEAN PLATELET VOLUME 9.4 fL (7.9-10.8); MONOCYTES # (AUTO) 0.5 10^3/uL (0.0-1.0); NEUTROPHILS % (AUTO) 62.4 %; PLT - PLATELET COUNT 213 10^3/uL (130-450); RED BLOOD COUNT 5.25 10^6/uL (4.20-5.40); RED CELL DISTRIBUTION WIDTH 12.5 % (12.0-15.0)
[2023-05-05 15:40] LABS: ALBUMIN 4.3 g/dL (3.2-5.5); ALBUMIN/GLOBULIN RATIO 1.7 (1.0-2.2); BILIRUBIN,TOTAL 0.7 mg/dL (0.2-1.0); CALCIUM 9.6 mg/dL (8.5-10.3); CREATININE 1.2 mg/dL (0.6-1.3); TOTAL PROTEIN 6.9 g/dL (6.4-8.9)
== END 2023-05-05 09:00 | disposition home or self-care (01) ==
LOC: LAB.S 08:59
PROVIDERS: ATTEND Registered Nurse
DX: R10.33 Periumbilical pain (principal)
CPT/HCPCS: 36415; 80053; 85025

== ENCOUNTER 2023-05-21 06:43 | Outpatient (CLI) | payer MEDICARE ==
[2023-05-21] MEDS ORDERED: DIATRIZOATE MEGLU/DIATRIZO SOD 30 ML BOTTLE PO ONE ×2 (07:11→08:31)
[2023-05-21] MEDS ORDERED: iohexoL-300 100 ML VIAL ONE (07:11)
[2023-05-21 07:13] LABS: CREATININE 1.1 mg/dL (0.6-1.3)
[2023-05-21] MEDS ORDERED: iohexoL-300 100 ML VIAL IVP ONE (08:31)
--- NOTE | 2023-05-21 12:23 | CT Report ---
PROCEDURE: Abdomen/Pelvis W INDICATIONS: ABD PAIN CONTRAST: Omni 300 100ml TECHNIQUE: After the administration of intravenous contrast, a CT scan of the abdomen and pelvis was performed. Images were recorded and evaluated at appropriate window settings. Reformats: coronal and sagittal. F or radiation dose reduction, the following was used: automated exposure control, adjustment of mA and /or kV according to patient size. COMPARISON: None. FINDINGS: Image quality: Excellent. Lung bases and heart: Unremarkable. Liver: Stable hypoattenuating lesion along the gallbladder fossa compared with 2020, favoring a benig n etiology (series 2, image 46). Gallbladder and biliary tree: Surgically absent. No biliary dilation, accounting for post-cholecystec thomas state. Spleen: No splenomegaly. Pancreas: No pancreatic ductal dilation. Adrenals: No adrenal nodule. Kidneys and ureters: No hydronephrosis. No renal cystic lesion which requires follow up. No solid mas s. Bowel and peritoneum: Mild wall thickening of the cecum (series 2, image 107). Lymph nodes: No central or retroperitoneal adenopathy. Vessels: No infrarenal aortic aneurysm. PELVIS Reproductive organs: Unremarkable. Bladder: No abnormal wall thickening, accounting for underdistention. Pelvic lymph nodes: No pelvic adenopathy by size criteria. Bones: No aggressive osseous abnormality. Other: Moderate degenerative disease and right hip osteoarthritis. IMPRESSION: Mild wall thickening of the cecum, could be due to underdistention or less likely malignancy. Conside r diagnostic colonoscopy if not up-to-date. Otherwise, no findings to explain the patient's generalized abdominal pain. Reviewed by: Forrest Ortiz MD on 05/21/2023 12:22 PM PST Approved by: Forrest Ortiz MD on 05/21/2023 12:22 PM PST Station ID: [id number]
== END 2023-05-21 06:44 | disposition home or self-care (01) ==
LOC: LAB 06:43
PROVIDERS: ATTEND Emergency Medicine
DX: R10.33 Periumbilical pain (principal)
CPT/HCPCS: 36415; 74177; 82565; Q9963; Q9967

== ENCOUNTER 2023-11-17 13:01 | Outpatient (CLI) | payer MEDICARE ==
--- NOTE | 2023-11-17 22:12 | CT Report ---
PROCEDURE: CT heart coronary calcium scoring without contrast TECHNIQUE: MDCT non-contrast cardiac gated images were obtained from the kylie through the inferior margin of the heart. Calcium score was obtained by post-processing with external software. Automated exposure control was used to reduce patient radiation dose. INDICATION: CAD screening, low or intermediate risk COMPARISON: Correlation is made with overlapping portions of the abdomen and pelvis CT, 05/21/2023 FINDINGS: Image quality: Excellent Agatston method: Total calcium score: 321.4 L main: 176.2 LAD: 52.9 LCX: 6.4 RCA: 85.8 Heart findings: Mitral annular calcifications: No significant calcifications. Aortic valve: No significant valvular calcifications. Chambers: No significant enlargement on this non-dynamic study. Pericardium: No effusion. Pacer leads are seen. Other findings (note the chest is incompletely imaged on this limited non-contrast study): Lungs and pleura: No pleural effusion. No actionable lung nodules. Mediastinum: No pathologic lymphadenopathy. Upper abdomen: Partially seen, unremarkable. Bones: No acute or suspicious abnormality. IMPRESSION: Severe coronary artery calcification. Additional findings: Pacer leads Coronary artery calcium scores have been identified as an independent risk factor for future acute co ronary syndromes and correlate with the quantity of coronary atherosclerotic plaque. However, they do not correlate directly with the degree of stenosis. A low score does not exclude a significant coron chantelle artery stenosis. Risk of future coronary events should be assessed with individual patient risk factors and medical hi story. Consider correlation with risk percentiles using the LANDRY (Multi-Ethnic Study of Atheroscleros is) calculator. CAC-DRS Categories: A0: 0, very low risk, consider repeat coronary calcium study every 3-7 years for surveillance. A1: 1-99, mildly increased risk, consider moderate-intensity statin A2: 100-299: moderately increased risk, consider moderate to high-intensity statin + ASA 81mg A3: >300: moderately to severely increased risk, consider high-intensity statin + ASA 81mg Reviewed by: Kenny Cardenas MD on 11/17/2023 9:10 PM AKDT Approved by: Kenny Cardenas MD on 11/17/2023 9:10 PM AKDT Station ID: [id number]
== END 2023-11-17 13:02 | disposition home or self-care (01) ==
LOC: DI 13:01
PROVIDERS: ATTEND Registered Nurse
DX: I25.10 Atherosclerotic heart disease of native coronary artery without angina pectoris (principal); Z95.0 Presence of cardiac pacemaker